=== PATIENT | female | born 2000 | race Hispanic/Latino ===

== ENCOUNTER 2020-07-16 20:03 | Emergency (ER) | payer SELFPAY ==
[2020-07-16 21:00] LABS: Urine Blood 2+ (NEG); Urine Glucose NEGATIVE (NEG); Urine Protein 1+ (NEG); Urine Specific Gravity >1.030 (1.005-1.030)
[2020-07-16 21:26] LABS: Absolute Lymphocytes (CBC) 2.4 K/uL (0.7-4.9); Basophils % 1.3 % (0-1.3); Hematocrit 39.9 % (36.0-45.0); Lymphocytes % 19.2 % (15.3-44.8); MPV 8.4 fL (7.6-11.3); RBC Red Blood Cell Count 5.01 M/uL (3.86-4.86)
[2020-07-16 21:45] LABS: ALT/SGPT 48 U/L (12-78); AST/SGOT 28 U/L (15-37); Albumin 3.6 g/dL (3.4-5.0); Alkaline Phosphatase 83 U/L (45-117); BUN Blood Urea Nitrogen 12 mg/dL (7-18); Bicarbonate 25 mmol/L (21-32); Bilirubin Direct < 0.1 mg/dL (0-0.2); Bilirubin Total 0.3 mg/dL (0.2-1.0); Glucose Level 95 mg/dL (74-106); Lipase 85 U/L (73-393); Potassium 3.6 mmol/L (3.5-5.1); Protein, Total 7.5 g/dL (6.4-8.2); Sodium Level 141 mmol/L (136-145)
--- NOTE | 2020-07-16 23:36 | EDPHYS ---
Physician Documentation [facility] Name: Yayo Morgan Age: 19 yrs Sex: Female : 2000 Arrival Date: 07/16/2020 Time: 20:09 Bed 6 Private MD: ED Physician Kyle Peralta HPI: 07/16 20:53 This 19 yrs old Female presents to ER via Ambulatory with complaints of jmm Vaginal Pain - pressure, Nausea. 20:53 Onset: The symptoms/episode began/occurred today. Modifying factors: The symptoms are jmm alleviated by nothing, the symptoms are aggravated by nothing. Associated signs and symptoms: Pertinent negatives: vaginal bleeding, vaginal discharge. This is a 19 year old female with a history of PCOS that presents to the ED with complaints of pelvic pain and fullness beginning today. Patient states most recent cycle was in February. Denies vaginal discharge. Denies dysuria. . 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 - Social history:: Smoking status: Patient reports the use of cigarette tobacco products, denies chronic smoking, but will smoke occasionally. ROS: 20:53 Constitutional: Negative for fever, chills, and weight loss, Cardiovascular: Negative jmm for chest pain, palpitations, and edema, Respiratory: Negative for shortness of breath, cough, wheezing, and pleuritic chest pain. 20:53 : Positive for pelvic pain. 20:53 All other systems are negative. Exam: 20:53 Constitutional: This is a well developed, well nourished patient who is awake, alert, jmm and in no acute distress. Head/Face: atraumatic. Eyes: EOMI, no conjunctival erythema appreciated ENT: Moist Mucus Membranes Neck: Trachea midline, Supple Chest/axilla: Normal chest wall appearance and motion. Cardiovascular: Regular rate and rhythm. No edema appreciated Respiratory: Normal respirations, no respiratory distress appreciated Abdomen/GI: Non distended, soft Back: Normal ROM Skin: General appearance color normal MS/ Extremity: Moves all extremities, no obvious deformities appreciated, no edema noted to the lower extremities Neuro: Awake and alert, normal gait Psych: Behavior is normal, Mood is normal, Patient is cooperative and pleasant Vital Signs: 20:19 BP 133 / 70; Pulse 91; Resp 16 S; Temp 97.8(TE); Pulse Ox 100% on R/A; Weight 119.29 kg ca1 (R); Height 5 ft. 3 in. (160.02 cm) (R); 22:50 BP 127 / 85; Pulse 80; Resp 18; Pulse Ox 99% on R/A; ea 23:19 BP 136 / 84; Pulse 88; Resp 16; Pulse Ox 98% on R/A; ea 20:19 Body Mass Index 46.59 (119.29 kg, 160.02 cm) ca1 MDM: 20:56 Patient medically screened. [facility] 23:33 Data reviewed: vital signs, nurses notes. Counseling: I had a detailed discussion with janey the patient and/or guardian regarding: the historical points, exam findings, and any diagnostic results supporting the discharge/admit diagnosis, lab results, the need for outpatient follow up, to return to the emergency department if symptoms worsen or persist or if there are any questions or concerns that arise at home. ED course: Patient is alert and non toxic in appearance in the ED. Patient states she was prescribed metformin and control but does not currently have a pcp. Patient is advised to follow up with business representative for further evaluation. Patient is otherwise given strict return precautions. Patient understood and agrees with the plan of care. . 07/16 20:53 Order name: Urine Dipstick--Ancillary (enter results); Complete Time: 21: 07/16 20:53 Order name: Urine --Ancillary (enter results); Complete Time: 21: 07/16 21:07 Order name: Basic Metabolic Panel; Complete Time: 22:05 07/16 21:07 Order name: CBC with Diff; Complete Time: 22:05 07/16 21:07 Order name: Hepatic Function; Complete Time: 22:05 07/16 21:07 Order name: Lipase; Complete Time: 22:05 07/16 20:53 Order name: Urine Dipstick-Ancillary (obtain specimen); Complete Time: 20:54 ca1 07/16 20:53 Order name: Urine Test (obtain specimen); Complete Time: 20:54 ca1 07/16 21:06 Order name: US Pelvis Complete m 07/16 21:07 Order name: IV Saline Lock; Complete Time: 21:12 ea 07/16 21:07 Order name: Labs collected and sent; Complete Time: 21:12 ea Administered Medications: No medications were administered Disposition: 07/17 05:48 Co-signature as Attending Physician, Kyle Peralta MD. 7 Disposition: 07/16/20 23:35 Discharged to Home. Impression: Other ovarian cysts. - Condition is Stable. - Discharge Instructions: Ovarian Cyst, Diet for Polycystic Ovarian Syndrome. - Medication Reconciliation Form, Thank You Letter, Antibiotic Education, Prescription Opioid Use form. - Follow up: Private Physician; When: 2 - 3 days; Reason: Recheck today's complaints, Continuance of care, Re-evaluation by your physician. Signatures: Dispatcher [employer] EDMS J Luis Palm PA PA jmm Antunez, Elena, RN RN ea Acob, Cheryl, RN RN ca1 Holmes, Maurice, MD MD 7 Corrections: (The following items were deleted from the chart) 07/16 23:54 23:35 07/16/2020 23:35 Discharged to Home. Impression: Other ovarian cysts. Condition ea is Stable. Forms are Medication Reconciliation Form, Thank You Letter, Antibiotic Education, Prescription Opioid Use. Follow up: Private Physician; When: 2 - 3 days; Reason: Recheck today's complaints, Continuance of care, Re-evaluation by your physician. [facility]
--- NOTE | 2020-07-16 23:36 | ER ---
Nurse's Notes [facility] Name: Yayo Morgan Age: 19 yrs Sex: Female : 2000 Arrival Date: 07/16/2020 Time: 20:09 Bed 6 Private MD: Diagnosis: Other ovarian cysts Presentation: 07/16 20:19 Chief complaint: Patient states: groin pain and pressure since this morning. Reports ca1 lower back pain and nausea. Denies vomiting, urinary symptoms. Hx of PCOS. Coronavirus screen: Client denies travel out of the [place] in the last 14 days. At this time, the client does not indicate any symptoms associated with coronavirus-19. Ebola Screen: Patient negative for fever greater than or equal to 101.5 degrees Fahrenheit, and additional compatible Ebola Virus Disease symptoms Patient denies exposure to infectious person. Patient denies travel to an Ebola-affected area in the 21 days before illness onset. No symptoms or risks identified at this time. Initial Sepsis Screen: Does the patient meet any 2 criteria? No. Patient's initial sepsis screen is negative. Does the patient have a suspected source of infection? No. Patient's initial sepsis screen is negative. Risk Assessment: Do you want to hurt yourself or someone else? Patient reports no desire to harm self or others. Onset of symptoms was July 16, 2020. 20:19 Method Of Arrival: Ambulatory ca1 20:19 Acuity: ANAHY 3 ca1 Triage Assessment: 20:27 General: Appears in no apparent distress. Behavior is appropriate for age. Pain: ea Complains of pain in pelvis Pain radiates to back. Neuro: Level of Consciousness is awake, alert, obeys commands, Oriented to person, place, time, situation. Cardiovascular: Patient's skin is warm and dry. GI: Abdomen is obese, Reports nausea. Derm: Skin is pink, warm \T\ dry. 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 - Social history:: Smoking status: Patient reports the use of cigarette tobacco products, denies chronic smoking, but will smoke occasionally. Screenin:26 Abuse screen: Denies threats or abuse. Nutritional screening: No deficits noted. ea Tuberculosis screening: No symptoms or risk factors identified. Fall Risk None identified. Assessment: 20:27 Reassessment: see triage assessment. ea 21:13 Reassessment: Patient and/or family updated on plan of care and expected duration. Pain ea level reassessed. Patient is alert, oriented x 3, equal unlabored respirations, skin warm/dry/pink. 22:09 Reassessment: Patient and/or family updated on plan of care and expected duration. Pain ea level reassessed. Patient is alert, oriented x 3, equal unlabored respirations, skin warm/dry/pink. 23:19 Reassessment: Patient and/or family updated on plan of care and expected duration. Pain ea level reassessed. Patient is alert, oriented x 3, equal unlabored respirations, skin warm/dry/pink. 23:52 Reassessment: Patient and/or family updated on plan of care and expected duration. Pain ea level reassessed. Patient is alert, oriented x 3, equal unlabored respirations, skin warm/dry/pink. Discharge instruction given to patient, verbalized the understanding of instruction. Pt left ED ambulatory tolerating well. Vital Signs: 20:19 BP 133 / 70; Pulse 91; Resp 16 S; Temp 97.8(TE); Pulse Ox 100% on R/A; Weight 119.29 kg ca1 (R); Height 5 ft. 3 in. (160.02 cm) (R); 22:50 BP 127 / 85; Pulse 80; Resp 18; Pulse Ox 99% on R/A; ea 23:19 BP 136 / 84; Pulse 88; Resp 16; Pulse Ox 98% on R/A; ea 20:19 Body Mass Index 46.59 (119.29 kg, 160.02 cm) ca1 ED Course: 20:09 Patient arrived in ED. am2 20:20 Clara Nava, AMADO is Primary Nurse. ea 20:22 Triage completed. ca1 20:25 J Luis Palm PA is PHCP. jm 20:25 Kyle Peralta MD is Attending Physician. jmm 20:25 Arm band placed on right wrist. ca1 20:26 Patient has correct armband on for positive identification. Placed in gown. Bed in low ea position. Call light in reach. Side rails up X 1. 21:12 Inserted saline lock: 20 gauge in left antecubital area, using aseptic technique. ea ,using aseptic technique. Per Alexsander FISCHER Blood collected. 22:21 US Pelvis Complete In Process Unspecified. EDMS 23:53 No provider procedures requiring assistance completed. IV discontinued, intact, ea bleeding controlled, No redness/swelling at site. Pressure dressing applied. Administered Medications: No medications were administered Outcome: 23:35 Discharge ordered by . janey 23:53 Discharged to home ambulatory. ea 23:53 Condition: stable 23:53 Discharge instructions given to patient, Instructed on discharge instructions, follow up and referral plans. Demonstrated understanding of instructions, follow-up care. 23:54 Patient left the ED. ea Signatures: Dispatcher [employer] EDMS J Luis Palm PA PA jmm Moreno, Amanda am2 Clara Nava RN RN ea Acob, Cheryl RN RN ca1
[2020-07-17 02:00] VITALS: TEMP 97.8
[2020-07-17 02:03] VITALS: BP 136/84; O2SAT 98
--- NOTE | 2020-07-17 08:15 | RAD REPORT ---
EXAM DESCRIPTION: US - Pelvis Complete - 07/16/2020 10:21 pm CLINICAL HISTORY: pelvic pain Pelvic pain. COMPARISON: No comparisons FINDINGS: The uterus is normal in size, shape and echotexture. The uterus measures 7.5 x 4.4 x 3.7 c m. The endometrial stripe measures 15 mm, normal. Both ovaries are normal in size, shape and echotexture. The right ovary measures 3.4 x 2.7 x 2.3 cm. The left ovary measures 3.6 x 3.3 x 2.1 cm. No ovarian or parovarian lesions. No adnexal masses. Normal Doppler blood flow was demonstrated to both ovaries. No significant pelvic ascites. IMPRESSION: No acute process is identified.
== END 2020-07-16 23:54 | disposition home or self-care (01) ==
LOC: ER 20:03
DX: N83.299 Other ovarian cyst, unspecified side (principal); F17.210 Nicotine dependence, cigarettes, uncomplicated
CPT/HCPCS: 36415; 76856; 80048; 80076; 81003; 81025; 83690; 85025; 99283

== ENCOUNTER 2020-08-06 18:05 | Emergency (ER) | payer SELFPAY ==
[2020-08-06] MEDS ORDERED: SMZ./TMP. 800/160 MG TABLET ONE (19:45)
[2020-08-06] MEDS ORDERED: CEPHALEXIN 250 MG CAP ONE (19:45)
[2020-08-06] MEDS ORDERED: LIDOCAINE 1% MPF 5 ML VIAL ONE (19:45)
[2020-08-06] MEDS ORDERED: HYDROCODONE/APAP 7.5/325 MG TAB ONE (19:46)
--- NOTE | 2020-08-06 20:20 | ER ---
Nurse's Notes [facility] Name: Yayo Morgan Age: 19 yrs Sex: Female : 2000 Arrival Date: 08/06/2020 Time: 18:09 Bed 20 Private MD: Diagnosis: Cutaneous abscess of groin-left labia majora Presentation: 08/06 18:17 Chief complaint: Patient states: Abscess to vaginal are for 2-3 days getting slowly ll1 worse. No drainage, no fever. Coronavirus screen: Client denies travel out of the [place] in the last 14 days. At this time, the client does not indicate any symptoms associated with coronavirus-19. Ebola Screen: Patient denies travel to an Ebola-affected area in the 21 days before illness onset. Initial Sepsis Screen: Does the patient meet any 2 criteria? No. Patient's initial sepsis screen is negative. Risk Assessment: Do you want to hurt yourself or someone else? Patient reports no desire to harm self or others. Onset of symptoms was August 04, 2020. 18:17 Method Of Arrival: Ambulatory ll1 18:17 Acuity: ANAHY 3 ll1 Historical: - Allergies: 18:19 No Known Allergies; ll1 - PMHx: 18:19 PCOS; ll1 - PSHx: 18:19 hip surgery; Tonsillectomy; ll1 - Immunization history:: Flu vaccine is not up to date. - Social history:: Smoking status: Patient denies any tobacco usage or history of. Screenin:06 Abuse screen: Denies threats or abuse. Nutritional screening: No deficits noted. jb4 Tuberculosis screening: No symptoms or risk factors identified. Fall Risk None identified. Assessment: 19:06 General: Appears in no apparent distress. uncomfortable, Behavior is calm, cooperative, jb4 appropriate for age. Pain: Complains of pain in pelvis Pain does not radiate. Pain currently is 4 out of 10 on a pain scale. Neuro: Level of Consciousness is awake, alert, obeys commands, Oriented to person, place, time, situation. Cardiovascular: Patient's skin is warm and dry. Respiratory: Airway is patent Respiratory effort is even, unlabored, Respiratory pattern is regular, symmetrical. GI: No signs and/or symptoms were reported involving the gastrointestinal system. : No signs and/or symptoms were reported regarding the genitourinary system. EENT: No signs and/or symptoms were reported regarding the EENT system. Derm: Skin is intact, Skin is pink, warm \T\ dry. Abscess located on groin. Musculoskeletal: Circulation, motion, and sensation intact. Range of motion: intact in all extremities. 20:14 Reassessment: Patient appears in no apparent distress at this time. Patient and/or jb4 family updated on plan of care and expected duration. Pain level reassessed. Patient is alert, oriented x 3, equal unlabored respirations, skin warm/dry/pink. Vital Signs: 18:17 BP 136 / 62; Pulse 98; Resp 18; Temp 98.3; Pulse Ox 99% ; Weight 119.29 kg; Height 5 ll1 ft. 4 in. (162.56 cm); Pain 4/10; 20:30 BP 122 / 78; Pulse 76; Resp 16; Pulse Ox 98% on R/A; jb4 18:17 Body Mass Index 45.14 (119.29 kg, 162.56 cm) ll1 ED Course: 18:09 Patient arrived in ED. mr 18:18 Triage completed. ll1 18:19 Arm band placed on. ll1 18:29 Verónica Peres [facility]NP-C [facility]. kb 18:29 Wallace Galloway MD is Attending Physician. kb 19:06 Patient has correct armband on for positive identification. Placed in gown. Bed in low jb4 position. Call light in reach. Side rails up X 1. Pulse ox on. NIBP on. 19:25 Laith Casper, AMADO is Primary Nurse. jb4 20:40 No provider procedures requiring assistance completed. Patient did not have IV access jb4 during this emergency room visit. Administered Medications: 19:39 Drug: Bonita (7.5 mg-325 mg) 1 tabs Route: PO; jb4 19:40 Drug: Bactrim (160 mg-800 mg (DS) 1 tablet Route: PO; jb4 19:40 Drug: KeFLEX 500 mg Route: PO; jb4 20:12 Drug: Lidocaine (1 %) 1 vials {Note: administered by ER provider..} Volume: 5 ml; jb4 Route: Infiltration; Outcome: 20:19 Discharge ordered by . kb 20:40 Discharged to home ambulatory, with family. jb4 20:40 Condition: stable 20:40 Discharge instructions given to patient, Instructed on discharge instructions, follow up and referral plans. medication usage, Demonstrated understanding of instructions, follow-up care, medications, Prescriptions given X 3. 20:40 Patient left the ED. tl1 Signatures: Verónica Peres, TEAM ASSEMBLY LINE MACHINE OPERATOR-C TEAM ASSEMBLY LINE MACHINE OPERATOR-Federico Mimi Lua mr ChaloTaylor, RN RN tl1 Laith Casper RN RN jb4 Mildred Valdez RN RN ll1 Corrections: (The following items were deleted from the chart) 19:39 19:39 Lidocaine (1 %) 1 vials 5 ml Infiltration 5 ml jb4 jb4 20:41 20:40 Discharge instructions given to patient, Instructed on discharge instructions, jb4 follow up and referral plans. Demonstrated understanding of instructions, follow-up care, medications, jb4
--- NOTE | 2020-08-06 20:20 | EDPHYS ---
Physician Documentation [facility] Name: Yayo Morgan Age: 19 yrs Sex: Female : 2000 Arrival Date: 08/06/2020 Time: 18:09 Bed 20 Private MD: ED Physician Wallace Galloway HPI: 08/06 19:57 This 19 yrs old Female presents to ER via Ambulatory with complaints of kb Abscess. 19:57 The patient presents with an abscess of the left labia majora. Description: kb erythematous, fluctuant, swollen. Onset: The symptoms/episode began/occurred 3 day(s) ago. Possible cause(s): unknown. Associated signs and symptoms: Pertinent positives: erythema, swelling, Pertinent negatives: discharge, drainage, foreign body sensation, fever, headache, nausea, shortness of breath, vomiting. Modifying factors: the symptoms are alleviated by nothing, the symptoms are aggravated by pressure, sitting, squeezing the lesion and expressing the contents, touching. Severity of symptoms: At their worst the symptoms were moderate, in the emergency department the symptoms are unchanged. The patient has not experienced similar symptoms in the past. The patient has not recently seen a physician. Historical: - Allergies: 18:19 No Known Allergies; ll1 - PMHx: 18:19 PCOS; ll1 - PSHx: 18:19 hip surgery; Tonsillectomy; ll1 - Immunization history:: Flu vaccine is not up to date. - Social history:: Smoking status: Patient denies any tobacco usage or history of. ROS: 19:55 Constitutional: Negative for fever, chills, and weight loss, Cardiovascular: Negative kb for chest pain, palpitations, and edema, Respiratory: Negative for shortness of breath, cough, wheezing, and pleuritic chest pain, Abdomen/GI: Negative for abdominal pain, nausea, vomiting, diarrhea, and constipation, MS/Extremity: Negative for injury and deformity, Neuro: Negative for headache, weakness, numbness, tingling, and seizure. 19:55 Skin: Positive for abscess, of the left labia majora. Exam: 19:55 Constitutional: This is a well developed, well nourished patient who is awake, alert, kb and in no acute distress. Head/Face: Normocephalic, atraumatic. Chest/axilla: Normal chest wall appearance and motion. Nontender with no deformity. No lesions are appreciated. Cardiovascular: Regular rate and rhythm with a normal S1 and S2. No gallops, murmurs, or rubs. Normal PMI, no JVD. No pulse deficits. Respiratory: Lungs have equal breath sounds bilaterally, clear to auscultation and percussion. No rales, rhonchi or wheezes noted. No increased work of breathing, no retractions or nasal flaring. Abdomen/GI: Soft, non-tender, with normal bowel sounds. No distension or tympany. No guarding or rebound. No evidence of tenderness throughout. MS/ Extremity: Pulses equal, no cyanosis. Neurovascular intact. Full, normal range of motion. Neuro: Awake and alert, GCS 15, oriented to person, place, time, and situation. Cranial nerves II-XII grossly intact. Motor strength 5/5 in all extremities. Sensory grossly intact. Cerebellar exam normal. Normal gait. 19:55 : Pelvic Exam: External exam: abscess left labia majora. Vital Signs: 18:17 BP 136 / 62; Pulse 98; Resp 18; Temp 98.3; Pulse Ox 99% ; Weight 119.29 kg; Height 5 ll1 ft. 4 in. (162.56 cm); Pain 4/10; 20:30 BP 122 / 78; Pulse 76; Resp 16; Pulse Ox 98% on R/A; jb4 18:17 Body Mass Index 45.14 (119.29 kg, 162.56 cm) ll1 Procedures: 20:18 I \T\ D: Incision and drainage was performed for an abscess of the left left labia majora kb Prepped with Betadine, Anesthetized with 1 ml's 1% Lidocaine. Incised with #11 blade. Drained small amount purulent fluid. the patient tolerated the procedure well. MDM: 19:06 Patient medically screened. kb 19:54 Data reviewed: vital signs, nurses notes. Data interpreted: Pulse oximetry: on room air kb is 99 %. Interpretation: normal. Counseling: I had a detailed discussion with the patient and/or guardian regarding: the historical points, exam findings, and any diagnostic results supporting the discharge/admit diagnosis, the need for outpatient follow up, an OB/Gyne specialist, to return to the emergency department if symptoms worsen or persist or if there are any questions or concerns that arise at home. 08/06 19:25 Order name: I\T\D Setup; Complete Time: 20:04 kb Administered Medications: 19:39 Drug: Bear (7.5 mg-325 mg) 1 tabs Route: PO; jb4 19:40 Drug: Bactrim (160 mg-800 mg (DS) 1 tablet Route: PO; jb4 19:40 Drug: KeFLEX 500 mg Route: PO; jb4 20:12 Drug: Lidocaine (1 %) 1 vials {Note: administered by ER provider..} Volume: 5 ml; jb4 Route: Infiltration; Disposition: 08/07 09:07 Co-signature as Attending Physician, Wallace Galloway MD I agree with the assessment and kdr plan of care. Disposition: 08/06/20 20:19 Discharged to Home. Impression: Cutaneous abscess of groin - left labia majora. - Condition is Stable. - Discharge Instructions: Skin Abscess, [id number], Incision and Drainage, Care After. - Prescriptions for Diclofenac Sodium 75 mg Oral Tablet, Delayed Release (E.C.) - take 1 tablet by ORAL route 2 times per day As needed; 30 tablet. Bactrim DS 800- 160 mg Oral Tablet - take 1 tablet by ORAL route every 12 hours for 10 days; 20 tablet. Keflex 500 mg Oral Capsule - take 1 capsule by ORAL route every 8 hours for 10 days; 30 capsule. - Medication Reconciliation Form, Thank You Letter, Antibiotic Education, Prescription Opioid Use, Work release form form. - Follow up: Emergency Department; When: As needed; Reason: Worsening of condition. Follow up: Private Physician; When: 2 - 3 days; Reason: Recheck today's complaints, Continuance of care, Re-evaluation by your physician. Signatures: Verónica Peres, VICE PRESIDENT OF DEVELOPMENT-C VICE PRESIDENT OF DEVELOPMENT-Ckb Wallace Galloway MD MD [facility] Taylor Isabel RN RN tl1 Laith Casper RN RN jb4 Mildred Valdez, AMADO RN ll1 Corrections: (The following items were deleted from the chart) 08/06 20:40 20:19 08/06/2020 20:19 Discharged to Home. Impression: Cutaneous abscess of groin - tl1 left labia majora. Condition is Stable. Forms are Medication Reconciliation Form, Thank You Letter, Antibiotic Education, Prescription Opioid Use. Follow up: Emergency Department; When: As needed; Reason: Worsening of condition. Follow up: Private Physician; When: 2 - 3 days; Reason: Recheck today's complaints, Continuance of care, Re-evaluation by your physician. kb
[2020-08-06 21:19] VITALS: TEMP 98.3
[2020-08-06 21:21] VITALS: BP 122/78; O2SAT 98
== END 2020-08-06 20:40 | disposition home or self-care (01) ==
LOC: ER 18:05
PROC: 0U9MXZZ Drainage of Vulva, External Approach (ICD-10-PCS; principal; 2020-08-06)
DX: L02.214 Cutaneous abscess of groin (principal)
CPT/HCPCS: 99283

== ENCOUNTER 2020-09-29 19:53 | Emergency (ER) | payer SELFPAY ==
--- OUTSIDE RECORDS SUMMARY | 2020-09-29 19:55 | XMS REPORT | Continuity of Care Document ---
:2000 Author Organization [facility] t Address [address] [place] [address] Care Team Providers Name Role Phone Unavailable Unavailable Unavailable Problems This patient has no known problems. Allergies, Adverse Reactions, Alerts This patient has no known allergies or adverse reactions. Medications This patient has no known medications. Procedures This patient has no known procedures. Encounters Start End Encounter Admission Attending Care Care Encounter Source Date/Time Date/Time Type Type Clinicians Facility Department ID 2020 2020 Emergency E [id number] 16:34:00 16:34:00 Results This patient has no known results.
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
[2020-09-29] MEDS ORDERED: HYDROCODONE/APAP 10/325 TAB ONE (22:06)
[2020-09-29] MEDS ORDERED: IBUPROFEN 400 MG TAB ONE (22:07)
[2020-09-30 05:04] VITALS: BP 124/86; TEMP 98.3; O2SAT 100
--- NOTE | 2020-09-30 07:40 | RAD REPORT ---
EXAM DESCRIPTION: RAD - Knee Right 3 View - 09/29/2020 9:47 pm CLINICAL HISTORY: Right knee pain status post injury FINDINGS: Mild cortical regularity involves the medial tibial plateau. Most likely this is not signi ficant as there does not appear to be joint effusion present. A fracture although possible is conside red less likely No dislocation If the patient continues have symptoms to suggest an occult fracture, ligamentous or meniscal injury then MRI would be recommended
== END 2020-09-29 22:05 | disposition home or self-care (01) ==
LOC: ER 19:53
DX: M23.8X1 Other internal derangements of right knee (principal); V89.2XXA Person injured in unspecified motor-vehicle accident, traffic, initial encounter
CPT/HCPCS: 99284

== ENCOUNTER 2021-01-28 18:01 | Emergency (ER) | payer SELFPAY ==
--- OUTSIDE RECORDS SUMMARY | 2021-01-28 18:04 | XMS REPORT | Continuity of Care Document ---
:2000 Author Organization [facility] t Address [address] [place] [address] Care Team Providers Name Role Phone Unavailable [...]
[2021-01-28 20:38] LABS: SARS-COV-2 RT PCR NEGATIVE (NEGATIVE)
--- NOTE | 2021-01-28 21:26 | ER ---
Nurse's Notes [facility] Name: Yayo Morgan Age: 20 yrs Sex: Female : 2000 Arrival Date: 01/28/2021 Time: 18:02 Bed 27 Private MD: Diagnosis: Acute upper respiratory infection, unspecified Presentation: 01/28 18:16 Chief complaint: Patient states: Sore throat, headache, cough and congestion x ca1 yesterday. Coronavirus screen: Client denies travel out of the [place] in the last 14 days. congestion, cough unrelated to allergies, headache, sore throat, Client presents with at least one sign or symptom that may indicate coronavirus-19. Standard/surgical mask placed on the client. Provider contacted for isolation considerations. Ebola Screen: Patient negative for fever greater than or equal to 101.5 degrees Fahrenheit, and additional compatible Ebola Virus Disease symptoms Patient denies exposure to infectious person. Patient denies travel to an Ebola-affected area in the 21 days before illness onset. No symptoms or risks identified at this time. Initial Sepsis Screen: Does the patient meet any 2 criteria? No. Patient's initial sepsis screen is negative. Does the patient have a suspected source of infection? No. Patient's initial sepsis screen is negative. Risk Assessment: Do you want to hurt yourself or someone else? Patient reports no desire to harm self or others. Onset of symptoms was January 28, 2021. 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 - Social history:: Smoking status: Patient/guardian denies using tobacco, the patient reports quitting approximately 1 years ago, Patient/guardian denies using alcohol, street drugs, The patient lives with family. - Family history:: not pertinent. Screenin:39 Abuse screen: Denies threats or abuse. Denies injuries from another. Nutritional zb screening: No deficits noted. Tuberculosis screening: No symptoms or risk factors identified. Fall Risk None identified. Assessment: 20:38 General: Appears uncomfortable, Behavior is calm, cooperative, appropriate for age, zb Reports feeling ill for 1-2 days, fatigue for 1-2 days. Pain: Complains of pain in neck. Neuro: Level of Consciousness is awake, alert, obeys commands, Oriented to person, place, time, situation. Cardiovascular: Patient's skin is warm and dry. Respiratory: Airway is patent Respiratory effort is even. GI: Abdomen is obese. EENT: Throat is reddened Cervical nodes enlarged bilaterally. Derm: Skin is intact, Skin is dry, Skin is normal. Musculoskeletal: Range of motion: intact in all extremities. 20:40 Respiratory: Breath sounds are clear bilaterally. zb Vital Signs: 18:16 BP 106 / 88; Pulse 99; Resp 19 S; Temp 98.2(TE); Pulse Ox 100% on R/A; Weight 119.29 kg ca1 (R); Height 5 ft. 4 in. (162.56 cm) (R); Pain 4/10; 20:44 BP 100 / 58; Pulse 82; Resp 18; Pulse Ox 100% on R/A; zb 18:16 Body Mass Index 45.14 (119.29 kg, 162.56 cm) ca1 ED Course: 18:02 Patient arrived in ED. am2 18:18 Triage completed. ca1 18:19 Arm band placed on right wrist. ca1 18:23 [facility]C [facility] kb 18:23 Wallace Galloway MD is Attending Physician. kb 19:12 Strep Sent. ca1 20:29 Nancy Matthews MD is Attending Physician. ma2 20:33 Letitia Downing, AMADO is Primary Nurse. zb 20:39 Patient has correct armband on for positive identification. Bed in low position. Call zb light in reach. Side rails up X 1. Pulse ox on. NIBP on. Door closed. Noise minimized. Warm blanket given. 21:52 No provider procedures requiring assistance completed. Patient did not have IV access iw during this emergency room visit. Administered Medications: No medications were administered Outcome: 21:26 Discharge ordered by . ma2 21:52 Discharged to home ambulatory. iw 21:52 Condition: good 21:52 Discharge instructions given to patient, Instructed on discharge instructions, follow up and referral plans. medication usage, Demonstrated understanding of instructions, follow-up care, medications, Prescriptions given X 1. 21:53 Patient left the ED. tt3 Signatures: Verónica Peres FNP-C FNP-Chelo Ledesma, RN RN iw Malia Keller am2 Nancy Matthews MD MD ma2 Oumou Izquierdo RN RN ca1 Trim, Tyler tt3 Letitia Downing RN RN zb Corrections: (The following items were deleted from the chart) 21:01 20:44 Pulse 82bpm; Resp 18bpm; Pulse Ox 100% RA; zb zb
--- NOTE | 2021-01-28 21:26 | EDPHYS ---
Physician Documentation [facility] Name: Yayo Morgan Age: 20 yrs Sex: Female : 2000 Arrival Date: 01/28/2021 Time: 18:02 Bed 27 Private MD: ED Physician Nancy Matthews HPI: 01/28 21:24 This 20 yrs old Female presents to ER via Ambulatory with complaints of Sore ma2 Throat, Headache, Cough, Chest Pressure. 21:24 The patient presents with sore throat. Onset: The symptoms/episode began/occurred ma2 gradually, 1 day(s) ago. Severity of symptoms: At their worst the symptoms were very mild, in the emergency department the symptoms are unchanged. Associated signs and symptoms: Pertinent negatives cough, dysphagia, fever, flu-like symptoms, headache, nausea. The patient has experienced similar episodes in the past. [employer]: 18:19 LMP N/A - Irregular menses ca1 Historical: - Allergies: 18:19 No Known Allergies; ca1 - Home Meds: 18:19 Metformin Oral [Active]; ca1 - PMHx: 18:19 PCOS; Diabetes - NIDDM; ca1 - PSHx: 18:19 Femur Surgery; ca1 - Immunization history:: Flu vaccine is not up to date. - Social history:: Smoking status: Patient/guardian denies using tobacco, the patient reports quitting approximately 1 years ago, Patient/guardian denies using alcohol, street drugs, The patient lives with family. - Family history:: not pertinent. ROS: 21:24 Constitutional: Negative for fever, chills, and weight loss. ma2 21:24 All other systems are negative. Exam: 21:24 Constitutional: This is a well developed, well nourished patient who is awake, alert, ma2 and in no acute distress. Head/Face: Normocephalic, atraumatic. Eyes: Pupils equal round and reactive to light, extra-ocular motions intact. Lids and lashes normal. Conjunctiva and sclera are non-icteric and not injected. Cornea within normal limits. Periorbital areas with no swelling, redness, or edema. ENT: red oropharynx, otherwise Nares patent. No nasal discharge, no septal abnormalities noted. Tympanic membranes are normal and external auditory canals are clear. Oropharynx with no redness, swelling, or masses, exudates, or evidence of obstruction, uvula midline. Mucous membranes moist. Neck: Trachea midline, no thyromegaly or masses palpated, and no cervical lymphadenopathy. Supple, full range of motion without nuchal rigidity, or vertebral point tenderness. No Meningismus. Chest/axilla: Normal chest wall appearance and motion. Nontender with no deformity. No lesions are appreciated. Cardiovascular: Regular rate and rhythm with a normal S1 and S2. No gallops, murmurs, or rubs. Normal PMI, no JVD. No pulse deficits. Respiratory: Lungs have equal breath sounds bilaterally, clear to auscultation and percussion. No rales, rhonchi or wheezes noted. No increased work of breathing, no retractions or nasal flaring. Abdomen/GI: Soft, non-tender, with normal bowel sounds. No distension or tympany. No guarding or rebound. No evidence of tenderness throughout. MS/ Extremity: Pulses equal, no cyanosis. Neurovascular intact. Full, normal range of motion. Neuro: Awake and alert, GCS 15, oriented to person, place, time, and situation. Cranial nerves II-XII grossly intact. Motor strength 5/5 in all extremities. Sensory grossly intact. Cerebellar exam normal. Normal gait. Vital Signs: 18:16 BP 106 / 88; Pulse 99; Resp 19 S; Temp 98.2(TE); Pulse Ox 100% on R/A; Weight 119.29 kg ca1 (R); Height 5 ft. 4 in. (162.56 cm) (R); Pain 4/10; 20:44 BP 100 / 58; Pulse 82; Resp 18; Pulse Ox 100% on R/A; zb 18:16 Body Mass Index 45.14 (119.29 kg, 162.56 cm) ca1 MDM: 20:53 Patient medically screened. ma2 21:24 Differential diagnosis: Allergic rhinitis, gastroesophageal reflux disease, influenza, ma2 laryngitis. Data reviewed: vital signs, nurses notes. Counseling: I had a detailed discussion with the patient and/or guardian regarding: the historical points, exam findings, and any diagnostic results supporting the discharge/admit diagnosis, the presence of at least one elevated blood pressure reading (>120/80) during this emergency department visit, the need for outpatient follow up. Response to treatment: the patient's symptoms have markedly improved after treatment. 01/28 18:21 Order name: Strep; Complete Time: 20:12 ca1 01/28 20:17 Order name: Throat Culture EDMS 01/28 20:38 Order name: COVID-19/FLU A+B; Complete Time: 20:54 EDMS Administered Medications: No medications were administered Disposition: 01/28/21 21:26 Discharged to Home. Impression: Acute upper respiratory infection, unspecified. - Condition is Stable. - Discharge Instructions: Upper Respiratory Infection, Adult. - Prescriptions for Diclofenac Sodium 75 mg Oral Tablet Sustained Release - take 1 tablet by ORAL route 2 times per day; 30 tablet. - Medication Reconciliation Form, Thank You Letter, Antibiotic Education, Prescription Opioid Use form. - Follow up: Private Physician; When: Tomorrow; Reason: Continuance of care. Signatures: Dispatcher [employer] EDVT Verónica Peres, FERNANDO-C BOTTOM FINISHER-Nancy Rutledge MD MD ma2 Oumou Izquierdo RN RN ca1 Esvin Ray tt3 Corrections: (The following items were deleted from the chart) 19:51 18:21 Influenza Screen (A \T\ B)+BA.LAB.BRZ ordered. EDVT EDMS 19:52 18:21 CORONAVIRUS+MR.LAB.BRZ ordered. EDVT EDMS 21:53 21:26 01/28/2021 21:26 Discharged to Home. Impression: Acute upper respiratory tt3 infection, unspecified. Condition is Stable. Prescriptions for Diclofenac Sodium 75 mg Oral Tablet Sustained Release - take 1 tablet by ORAL route 2 times per day; 30 tablet. and Forms are Medication Reconciliation Form, Thank You Letter, Antibiotic Education, Prescription Opioid Use. Follow up: Private Physician; When: Tomorrow; Reason: Continuance of care. ma2
[2021-01-28 23:53] VITALS: TEMP 98.2; O2SAT 100
[2021-01-28 23:54] VITALS: BP 100/58
== END 2021-01-28 21:53 | disposition home or self-care (01) ==
LOC: ER 18:01
DX: J06.9 Acute upper respiratory infection, unspecified (principal); Z20.822 Contact with and (suspected) exposure to COVID-19; E11.9 Type 2 diabetes mellitus without complications
CPT/HCPCS: 0240U; 87070; 87081; 99283

== ENCOUNTER 2021-03-20 13:31 | Emergency (ER) | payer SELFPAY ==
--- OUTSIDE RECORDS SUMMARY | 2021-03-20 13:33 | XMS REPORT | Continuity of Care Document ---
:2000 Author Organization [facility] t Address [address] [place] [address] Care Team Providers Name Role Phone Unavailable [...]
[2021-03-20 14:27] LABS: Urine Glucose 2+ (Negative)
[2021-03-20 14:28] LABS: Urine Blood 3+ (Negative); Urine Protein 1+ (Negative); Urine pH 6.5 (5.0-7.0)
[2021-03-20 15:02] LABS: Absolute Lymphocytes (CBC) 1.9 K/uL (0.7-4.9); Basophils % 0.7 % (0-1.3); Hematocrit 32.9 % (36.0-45.0); Lymphocytes % 15.7 % (15.3-44.8); MPV 8.1 fL (7.6-11.3); RBC Red Blood Cell Count 4.88 M/uL (3.86-4.86)
[2021-03-20 15:13] LABS: Urine Bacteria <20 /HPF (<20); Urine RBC >50 /HPF (NONE SEEN)
[2021-03-20 15:24] LABS: BUN Blood Urea Nitrogen 9 mg/dL (7-18); Bicarbonate 27 mmol/L (21-32); Glucose Level 294 mg/dL (74-106); Potassium 3.8 mmol/L (3.5-5.1); Sodium Level 138 mmol/L (136-145)
[2021-03-20 15:30] LABS: HCG, Quantitative < 1 mIU/mL (1-3)
[2021-03-20 15:47] LABS: Blood Morphology Comment NOTED (NOT SEEN); Hypochromasia 1+; Platelet Estimate ADEQ; Polychromasia SLIGHT; White Blood Cell Scan OK (OK)
--- NOTE | 2021-03-20 18:51 | EDPHYS ---
Physician Documentation [facility] Name: Yayo Morgan Age: 20 yrs Sex: Female : 2000 Arrival Date: 03/20/2021 Time: 13:34 Bed 15 Private MD: ED Physician Froylan Agrawal HPI: 03/20 14:30 This 20 yrs old Female presents to ER via Ambulatory with complaints of cp Vaginal Bleeding, + Preg <12wks. 14:30 The patient presents with vaginal bleeding that is with clots, a desire for a cp test. 14:30 Onset: The symptoms/episode began/occurred 1 week(s) ago. cp 14:30 Associated signs and symptoms: Pertinent positives: cramping, Pertinent negatives: cp fever. 14:30 Severity of symptoms: in the emergency department the symptoms are unchanged, despite cp home interventions. STARS SPECIALIST: 14:53 LMP 03/20/2021 jd3 Historical: - Allergies: 13:55 Bees; aa5 - Home Meds: 13:55 None [Active]; aa5 - PMHx: 13:55 PCOS; pre-diabetes; aa5 - PSHx: 13:55 Tonsillectomy; 2 screws in right hip; aa5 - Immunization history:: Client reports having NOT received the Covid vaccine. Flu vaccine is not up to date. - Social history:: Smoking status: Patient/guardian denies using tobacco. ROS: 14:35 Constitutional: Negative for body aches, chills, fever, poor PO intake. cp 14:35 : Positive for vaginal bleeding. cp 14:35 Eyes: Negative for injury, pain, redness, and discharge. cp 14:35 ENT: Negative for ear pain, sore throat, difficulty swallowing, difficulty handling cp secretions. 14:35 Cardiovascular: Negative for chest pain. 14:35 Respiratory: Negative for cough, shortness of breath, wheezing. 14:35 Abdomen/GI: Positive for abdominal cramps. 14:35 Back: Negative for pain at rest, pain with movement. 14:35 Neuro: Negative for altered mental status, headache, syncope, weakness. 14:35 All other systems are negative. Exam: 14:50 Constitutional: The patient appears in no acute distress, alert, awake, non-toxic, well cp developed, well nourished, obese. 14:50 Head/Face: Normocephalic, atraumatic. cp 14:50 Eyes: Periorbital structures: appear normal, Conjunctiva: normal, no exudate, no injection, Sclera: no appreciated abnormality, Lids and lashes: appear normal, bilaterally. 14:50 ENT: External ear(s): are unremarkable, Nose: is normal, Mouth: Lips: moist, Oral mucosa: moist, Posterior pharynx: Airway: no evidence of obstruction, patent. 14:50 Chest/axilla: Inspection: normal. 14:50 Cardiovascular: Rate: tachycardic, Rhythm: regular. 14:50 Respiratory: the patient does not display signs of respiratory distress, Respirations: normal, no use of accessory muscles, no retractions, labored breathing, is not present. 14:50 Abdomen/GI: Inspection: abdomen appears normal, Palpation: soft, in all quadrants, nontender, in all quadrants. 14:50 Back: pain, is absent, ROM is normal. Vital Signs: 13:45 BP 137 / 91; Pulse 107; Resp 20; Temp 98.5; Pulse Ox 100% on R/A; Weight 119.29 kg (R); aa5 Height 5 ft. 4 in. (162.56 cm) (R); Pain 3/10; 19:07 Pulse 100; Resp 18; Pulse Ox 98% on R/A; zb 13:45 Body Mass Index 45.14 (119.29 kg, 162.56 cm) aa5 MDM: 14:23 Patient medically screened. cp 15:00 Differential diagnosis: dysmenorrhea, ectopic , ovarian cyst, pelvic cp inflammatory disease, ruptured ectopic , uterine fibroids, urinary tract infection, vaginosis. 18:50 Data reviewed: vital signs, nurses notes, lab test result(s), radiologic studies, cp ultrasound. 18:50 Counseling: I had a detailed discussion with the patient and/or guardian regarding: the cp historical points, exam findings, and any diagnostic results supporting the discharge/admit diagnosis, lab results, radiology results, the need for outpatient follow up, a family practitioner, an OB/Gyne specialist, to return to the emergency department if symptoms worsen or persist or if there are any questions or concerns that arise at home. 03/20 14:27 Order name: Urine Dipstick-Ancillary; Complete Time: 14:29 EDMS 03/20 15:26 Interpretation: Normal except: UGLUC 2+; UBLD 3+; UPROT 1+. cp 03/20 14:28 Order name: Urine Microscopic Only; Complete Time: 15:25 cp 03/20 15:25 Interpretation: Normal except: URBC >50. cp 03/20 14:29 Order name: Urine --Ancillary (enter results); Complete Time: 15:50 em1 03/20 14:29 Order name: Quantitative Hcg; Complete Time: 15:50 cp 03/20 14:29 Order name: Abo/rh Typing; Complete Time: 15:50 cp 03/20 14:29 Order name: Basic Metabolic Panel; Complete Time: 15:50 cp 03/20 15:50 Interpretation: Abnormal: GLUC 294. cp 03/20 14:28 Order name: Urine Test (obtain specimen); Complete Time: 14:31 cp 03/20 14:29 Order name: CBC with Diff; Complete Time: 15:50 cp 03/20 15:25 Interpretation: Normal except: WBC 12.00; RBC 4.88; HGB 10.2; HCT 32.9; MCV 67.4; MCH cp 21.0; MCHC 31.1; PLT 442; RDW 16.9; ROGELIO% 76.0; NEUT A 9.1. 03/20 14:29 Order name: IV Saline Lock; Complete Time: 14:48 cp 03/20 14:29 Order name: Labs collected and sent; Complete Time: 14:48 cp 03/20 14:29 Order name: NPO; Complete Time: 14:31 cp 03/20 14:47 Order name: US Transvaginal Study (Probe) 03/20 15:05 Order name: CBC Smear Scan; Complete Time: 15:50 EDMS Administered Medications: No medications were administered Disposition: 03/21 06:55 Co-signature as Attending Physician, Froylan Agrawal MD I agree with the assessment and dali plan of care. Disposition: 03/20/21 18:51 Discharged to Home. Impression: Hyperglycemia, unspecified, Anemia in chronic diseases classified elsewhere, Other abnormal uterine and vaginal bleeding. - Condition is Stable. - Discharge Instructions: Abnormal Uterine Bleeding, Iron Deficiency Anemia, Adult, Anemia, Nonspecific, Hyperglycemia, Prediabetes Eating Plan. - Prescriptions for Ferrous Sulfate 325 mg (65 mg Iron) Oral Tablet - take 1 tablet by ORAL route every 12 hours; 60 tablet. - Medication Reconciliation Form, Thank You Letter, Antibiotic Education, Prescription Opioid Use form. - Follow up: Private Physician; When: 1 week; Reason: Worsening of condition. - Problem is new. - Symptoms have improved. Signatures: Dispatcher [employer] EDFroylan Patel MD MD cha Calderon, Audri RN RN aa5 Froylan Cruz PA PA cp Brown, Zipporah, RN RN zb Corrections: (The following items were deleted from the chart) 03/20 19:08 18:51 03/20/2021 18:51 Discharged to Home. Impression: Hyperglycemia, unspecified; zb Anemia in chronic diseases classified elsewhere; Other abnormal uterine and vaginal bleeding. Condition is Stable. Forms are Medication Reconciliation Form, Thank You Letter, Antibiotic Education, Prescription Opioid Use. Follow up: Private Physician; When: 1 week; Reason: Worsening of condition. Problem is new. Symptoms have improved. cp
--- NOTE | 2021-03-20 18:51 | ER ---
Nurse's Notes [facility] Name: Yayo Morgan Age: 20 yrs Sex: Female : 2000 Arrival Date: 03/20/2021 Time: 13:34 Bed 15 Private MD: Diagnosis: Hyperglycemia, unspecified;Anemia in chronic diseases classified elsewhere;Other abnormal uterine and vaginal bleeding Presentation: 03/20 13:45 Chief complaint: Patient states: "I was relaxing at the house and I felt like a big aa5 villela of flow and when I went to the restroom there was something pink in a blood clot, so I freaked out and called my [id number] who told her me to come to the ER to make sure I didn't have a miscarriage" Patient states that she has not had a positive test, and she isn't sure if she missed a period because her menstrual cycle is irregular, and she is not sure when her LMP was. States that the bleeding has been going on for approximately 30 minutes. Coronavirus screen: Client denies travel out of the [place] in the last 14 days. At this time, the client does not indicate any symptoms associated with coronavirus-19. Ebola Screen: Patient denies travel to an Ebola-affected area in the 21 days before illness onset. Initial Sepsis Screen: Does the patient meet any 2 criteria? HR > 90 bpm. No. Patient's initial sepsis screen is negative. Does the patient have a suspected source of infection? No. Patient's initial sepsis screen is negative. Risk Assessment: Do you want to hurt yourself or someone else? Patient reports no desire to harm self or others. Onset of symptoms was March 20, 2021. 13:45 Method Of Arrival: Ambulatory aa5 13:45 Acuity: ANAHY 3 aa5 Triage Assessment: 13:55 General: Appears in no apparent distress. uncomfortable, Behavior is cooperative, aa5 anxious. Pain: Complains of pain in suprapubic area, right inguinal area and left inguinal area Pain currently is 3 out of 10 on a pain scale. Quality of pain is described as crampy. Neuro: Level of Consciousness is awake, alert, obeys commands, Oriented to person, place, time, situation. Cardiovascular: Patient's skin is warm and dry. Respiratory: Airway is patent Respiratory effort is even, unlabored, Respiratory pattern is regular, symmetrical. : Reports vaginal bleeding that is bright red, with clots, heavy flow. Derm: Skin is pink, warm \\T\\ dry. normal. Musculoskeletal: Circulation, motion, and sensation intact. SAMPLE PASTER: 14:53 LMP 03/20/2021 jd3 Historical: - Allergies: 13:55 Bees; aa5 - Home Meds: 13:55 None [Active]; aa5 - PMHx: 13:55 PCOS; pre-diabetes; aa5 - PSHx: 13:55 Tonsillectomy; 2 screws in right hip; aa5 - Immunization history:: Client reports having NOT received the Covid vaccine. Flu vaccine is not up to date. - Social history:: Smoking status: Patient/guardian denies using tobacco. Screenin:52 Abuse screen: Denies threats or abuse. Nutritional screening: No deficits noted. jd3 Tuberculosis screening: No symptoms or risk factors identified. Fall Risk Ambulatory Aid- None/Bed Rest/Nurse Assist (0 pts). Gait- Normal/Bed Rest/Wheelchair (0 pts) Mental Status- Oriented to own ability (0 pts). Total Bright Fall Scale indicates No Risk (0-24 pts). Assessment: 14:49 General: Appears in no apparent distress. comfortable, Behavior is calm, cooperative, jd3 appropriate for age. Pain: Complains of pain in suprapubic area Quality of pain is described as aching. Neuro: Level of Consciousness is awake, alert, obeys commands, Oriented to person, place, time, situation. Cardiovascular: Denies chest pain, Capillary refill < 3 seconds Patient's skin is warm and dry. Respiratory: Airway is patent Respiratory effort is even, unlabored, Respiratory pattern is regular, symmetrical, Denies cough, shortness of breath. GI: Abdomen is round Abd is soft and non tender X 4 quads. Reports lower abdominal pain, nausea. : Reports vaginal bleeding that is with clots. EENT: No signs and/or symptoms were reported regarding the EENT system. Derm: Skin is intact, Skin is dry, Skin is normal, Skin temperature is warm. Musculoskeletal: Circulation, motion, and sensation intact. Range of motion: intact in all extremities. 15:27 Reassessment: Patient appears in no apparent distress at this time. No changes from jd3 previously documented assessment. Patient and/or family updated on plan of care and expected duration. Pain level reassessed. Patient is alert, oriented x 3, equal unlabored respirations, skin warm/dry/pink. 19:06 Reassessment: Patient appears in no apparent distress at this time. Patient and/or zb family updated on plan of care and expected duration. Pain level reassessed. Patient is alert, oriented x 3, equal unlabored respirations, skin warm/dry/pink. pt d/c gait even and steady. ambulated out. Vital Signs: 13:45 BP 137 / 91; Pulse 107; Resp 20; Temp 98.5; Pulse Ox 100% on R/A; Weight 119.29 kg (R); aa5 Height 5 ft. 4 in. (162.56 cm) (R); Pain 3/10; 19:07 Pulse 100; Resp 18; Pulse Ox 98% on R/A; zb 13:45 Body Mass Index 45.14 (119.29 kg, 162.56 cm) aa5 ED Course: 13:34 Patient arrived in ED. as 13:53 Triage completed. aa5 13:55 Arm band placed on Patient placed in waiting room, Patient notified of wait time. aa5 14:19 Froylan Cruz PA is PHCP. cp 14:19 Froylan Agrawal MD is Attending Physician. cp 14:30 Phil Valente, AMADO is Primary Nurse. jd3 14:48 Inserted saline lock: 20 gauge in left antecubital area, using aseptic technique. Blood jd3 collected. 14:52 Patient has correct armband on for positive identification. Bed in low position. Call jd3 light in reach. Side rails up X 1. Adult w/ patient. Pulse ox on. NIBP on. 18:28 US Transvaginal Study (Probe) In Process Unspecified. EDMS 19:07 No provider procedures requiring assistance completed. IV discontinued, intact, zb bleeding controlled, No redness/swelling at site. Pressure dressing applied. Administered Medications: No medications were administered Outcome: 18:51 Discharge ordered by MD. cp 19:07 Discharged to home ambulatory. zb 19:07 Condition: stable 19:07 Discharge instructions given to patient, Instructed on discharge instructions, follow up and referral plans. medication usage, Demonstrated understanding of instructions, follow-up care, medications, Prescriptions given X 1. 19:08 Patient left the ED. yun Signatures: Dispatcher [employer] EDDaisha Claros Audri, RN RN aa5 Froylan Cruz PA PA cp Davies, Jonathon, RN RN jd3 Letitia Downing RN RN zb
--- NOTE | 2021-03-20 19:19 | RAD REPORT ---
EXAM DESCRIPTION: US - Transvaginal Study Probe - 03/20/2021 6:28 pm CLINICAL HISTORY: Vaginal bleeding COMPARISON: 2019 FINDINGS: The uterus measures 7 x 4 x 5cm. A fibroid is not seen. The endometrial stripe measures 10 millimeters The ovaries are normal in size and echotexture. Each ovary contains many follicles. Flow is present w ithin each ovary Cervical nabothian cysts No significant free fluid is seen. IMPRESSION: Each ovary contains many follicles. This can be seen with polycystic ovarian syndrome
[2021-03-20 19:29] VITALS: BP 137/91; TEMP 98.5
[2021-03-20 19:40] VITALS: O2SAT 98
== END 2021-03-20 19:08 | disposition home or self-care (01) ==
LOC: ER 13:31
DX: D64.9 Anemia, unspecified (principal); R73.9 Hyperglycemia, unspecified; Z91.030 Bee allergy status
CPT/HCPCS: 36415; 76830; 80048; 81003; 81015; 81025; 84702; 85025; 86900; 86901; 99284

== ENCOUNTER 2021-05-27 00:46 | Emergency (ER) | payer SELFPAY ==
--- OUTSIDE RECORDS SUMMARY | 2021-05-27 00:50 | XMS REPORT | Continuity of Care Document ---
:2000 Author Organization [facility] t Address [address] [place] [address] Care Team Providers Name Role Phone Unavailable [...]
[2021-05-27] MEDS ORDERED: ONDANSETRON 4 MG (ODT) TAB ONE (02:57)
[2021-05-27 02:59] LABS: Urine Blood 1+ (Negative); Urine Glucose Negative (Negative); Urine Protein 2+ (Negative); Urine pH 8.5 (5.0-7.0)
[2021-05-27 03:47] LABS: ALT/SGPT 53 U/L (12-78); AST/SGOT 20 U/L (15-37); Albumin 3.5 g/dL (3.4-5.0); Alkaline Phosphatase 91 U/L (45-117); BUN Blood Urea Nitrogen 8 mg/dL (7-18); Bicarbonate 25 mmol/L (21-32); Bilirubin Direct < 0.1 mg/dL (0-0.2); Bilirubin Total 0.4 mg/dL (0.2-1.0); Glucose Level 97 mg/dL (74-106); Lipase 64 U/L (73-393); Potassium 3.6 mmol/L (3.5-5.1); Sodium Level 140 mmol/L (136-145)
[2021-05-27 04:10] LABS: Absolute Lymphocytes (CBC) 2.4 K/uL (0.7-4.9); Basophils % 0.7 % (0-1.3); Hematocrit 32.1 % (36.0-45.0); Lymphocytes % 18.1 % (15.3-44.8); MPV 7.8 fL (7.6-11.3); RBC Red Blood Cell Count 4.96 M/uL (3.86-4.86)
[2021-05-27 04:37] LABS: Urine Bacteria 20-50 /HPF (<20); Urine Mucus 1+ /HPF (NONE SEEN); Urine RBC <5 /HPF (NONE SEEN); Urine Urothelial Cells <5 /HPF (NONE SEEN)
[2021-05-27 04:57] LABS: Blood Morphology Comment NOTED (NOT SEEN); Platelet Estimate INCR; White Blood Cell Scan OK (OK)
--- NOTE | 2021-05-27 05:28 | EDPHYS ---
Physician Documentation [facility] Name: Yayo Morgan Age: 20 yrs Sex: Female : 2000 Arrival Date: 05/27/2021 Time: 00:50 Bed 23 Private MD: ED Physician Marcus Bartholomew HPI: 05/27 02:49 This 20 yrs old Female presents to ER via Ambulatory with complaints of nausea.rn 02:50 The patient presents to the emergency department with nausea. Onset: The rn symptoms/episode began/occurred 2 week(s) ago. Possible causes: unknown. The symptoms are aggravated by food , The symptoms are alleviated by nothing. Severity of symptoms: At their worst the symptoms were mild in the emergency department the symptoms are unchanged. The patient has not experienced similar symptoms in the past. The patient has not recently seen a physician. Reports 2 weeks of nausea. Denies fever, abdominal pain, diarrhea. Reports brief headache the other day but not daily headaches or head trauma. States sexually active, took test at home 1 week ago and had a faint line, has not retested. Reports able to keep fluids down but food makes her nauseous. CLINICAL AUDITOR: 01:19 LMP 05/07/2021 em Historical: - Allergies: 01:18 Bees; em - Home Meds: 01:18 None [Active]; em - PMHx: 01:18 Diabetes - NIDDM; PCOS; em - PSHx: 01:18 femur; Tonsillectomy; em - Immunization history:: Adult Immunizations up to date, Client reports having NOT received the Covid vaccine. - Social history:: Smoking status: Patient denies any tobacco usage or history of. Patient/guardian denies using alcohol, street drugs. - Family history:: not pertinent. - Hospitalizations: : No recent hospitalization is reported. ROS: 02:50 Constitutional: Negative for fever, chills, and weight loss, Eyes: Negative for injury, rn pain, redness, and discharge, ENT: Negative for injury, pain, and discharge, Neck: Negative for injury, pain, and swelling, Cardiovascular: Negative for chest pain, palpitations, and edema, Respiratory: Negative for shortness of breath, cough, wheezing, and pleuritic chest pain, Abdomen/GI: Negative for vomiting, diarrhea, and constipation, Back: Negative for injury and pain, MS/Extremity: Negative for injury and deformity, Skin: Negative for injury, rash, and discoloration, Neuro: Negative for weakness, numbness, tingling, and seizure. Exam: 02:50 Constitutional: This is a well developed, well nourished patient who is awake, alert, rn and in no acute distress. Head/Face: Normocephalic, atraumatic. Eyes: Pupils equal round and reactive to light, extra-ocular motions intact. Lids and lashes normal. Conjunctiva and sclera are non-icteric and not injected. Cornea within normal limits. Periorbital areas with no swelling, redness, or edema. Cardiovascular: Regular rate and rhythm . No pulse deficits. Respiratory: No increased work of breathing, no retractions or nasal flaring. Abdomen/GI: Soft, non-tender Skin: Warm, dry with normal turgor. Normal color with no rashes, no lesions, and no evidence of cellulitis. MS/ Extremity: Pulses equal, no cyanosis. Neurovascular intact. Full, normal range of motion. Equal circumference. Neuro: Awake and alert, GCS 15, oriented to person, place, time, and situation. Cranial nerves II-XII grossly intact. Motor strength 5/5 in all extremities. Sensory grossly intact. Cerebellar exam normal. Normal gait. Vital Signs: 01:19 BP 130 / 72; Pulse 90; Resp 16; Temp 98.4; Pulse Ox 100% ; Weight 119.29 kg; Height 5 em ft. 4 in. (162.56 cm); Pain 3/10; 01:19 Body Mass Index 45.14 (119.29 kg, 162.56 cm) em MDM: 02:22 Patient medically screened. rn 05:24 Differential diagnosis: Nonspecific abd pain, gastritis, cholecystitis, pancreatitis, rn gastroenteritis, Peptic ulcer disease, gastritis, stomach ulcer. Data reviewed: vital signs, nurses notes, lab test result(s), radiologic studies, CT scan, and as a result, I will discharge patient. Counseling: I had a detailed discussion with the patient and/or guardian regarding: the historical points, exam findings, and any diagnostic results supporting the discharge/admit diagnosis, lab results, radiology results, the need for outpatient follow up, to return to the emergency department if symptoms worsen or persist or if there are any questions or concerns that arise at home. Response to treatment: the patient's symptoms have mildly improved after treatment, and as a result, I will discharge patient. Special discussion: I discussed with the patient/guardian in detail that at this point there is no indication for admission to the hospital. It is understood, however, that if the symptoms persist or worsen the patient needs to return immediately for re-evaluation. Based on the history and exam findings, there is no indication for further emergent testing or inpatient evaluation. I discussed with the patient/guardian the need to see the md senior research scientist for further evaluation of the symptoms. ED course: Patient sleeping comfortably, feels better. CT head negative. CT abdomen shows possible gastric ulcer near the GE junction. Reevaluated patient, denies any hematemesis or bloody or black stool. Hemoglobin 10, last seen in March of this year and hemoglobin was 10.2. Patient states has heavy periods. Will start on antacid medication and discharge home with GI follow-up. Return precautions given and understood. 05/27 02:30 Order name: Urine Microscopic Only; Complete Time: 04:47 05/27 02:57 Order name: Urine Dipstick-Ancillary; Complete Time: 04:47 [facility] 05/27 03:00 Order name: Basic Metabolic Panel 05/27 03:00 Order name: CBC with Diff; Complete Time: 05:15 05/27 03:00 Order name: Hepatic Function; Complete Time: 04:47 05/27 03:00 Order name: Lipase; Complete Time: 04:47 05/27 03:00 Order name: CT Head Brain wo Cont 05/27 03:00 Order name: CT Abd/Pelvis - IV Contrast Only 05/27 03:01 Order name: Basic Metabolic Panel; Complete Time: 04:47 [facility] 05/27 03:01 Order name: Urine --Ancillary (enter results); Complete Time: 04:47 [facility] 05/27 04:25 Order name: CBC Smear Scan; Complete Time: 05:15 [facility] 05/27 04:38 Order name: Urine Culture [facility] 05/27 02:30 Order name: Urine Test (obtain specimen); Complete Time: 02:59 05/27 02:30 Order name: Urine Dipstick-Ancillary (obtain specimen); Complete Time: 02:59 05/27 03:00 Order name: IV Saline Lock; Complete Time: 03:27 rn 05/27 03:00 Order name: Labs collected and sent; Complete Time: 03:27 rn Administered Medications: 02:37 Drug: Ondansetron 4 mg Route: PO; em 02:59 Follow up: Response: No adverse reaction; Marked relief of symptoms; Nausea is decreasedem 05:49 Drug: ProTONIX (pantoprazole) 40 mg Route: IVP; Site: left antecubital; em 05:49 Follow up: Response: Medication administered at discharge. em 05:49 Drug: GI Cocktail without - (Maalox Suspension 30 ml, Lidocaine Liquid 2 % 15 em ml) Route: PO; 05:49 Follow up: Response: Medication administered at discharge. em Disposition Summary: 05/27/21 05:27 Discharge Ordered Location: Home rn Problem: an ongoing problem rn Symptoms: have improved rn Condition: Stable rn Diagnosis - Acute gastritis without bleeding rn - Acute peptic ulcer, site unspecified, without hemorrhage or perforation rn Followup: rn - With: Renny Griffin MD - When: 2 - 3 days - Reason: Recheck today's complaints, Re-evaluation by your physician Discharge Instructions: - Discharge Summary Sheet rn - Gastritis, Adult rn - Peptic Ulcer rn Forms: - Medication Reconciliation Form rn - Thank You Letter rn - Antibiotic media intern - Prescription Opioid Use rn Prescriptions: - Protonix 40 mg Oral Tablet - take 1 tablet by ORAL route once daily; 30 tablet; Refills: 0, Product rn Selection Permitted - ondansetron 4 mg Oral tablet,disintegrating - take 1 tablet by ORAL route every 8 hours As needed; 20 tablet; Refills: 0, rn Product Selection Permitted Signatures: Dispatcher [employer] Omar Kellogg RN RN em Marcus Bartholomew MD MD internal specialist: (The following items were deleted from the chart) 01:19 01:18 PMHx: Pre-Diabetes; em em
--- NOTE | 2021-05-27 05:28 | ER ---
Nurse's Notes [facility] Name: Yayo Morgan Age: 20 yrs Sex: Female : 2000 Arrival Date: 05/27/2021 Time: 00:50 Bed 23 Private MD: Diagnosis: Acute gastritis without bleeding;Acute peptic ulcer, site unspecified, without hemorrhage or perforation Presentation: 05/27 01:15 Chief complaint: Patient states: for 2 weeks I have not felt well. I feel lightheaded, em dizzy and nauseated. Coronavirus screen: Client denies travel out of the [place] in the last 14 days. Ebola Screen: Patient negative for fever greater than or equal to 101.5 degrees Fahrenheit, and additional compatible Ebola Virus Disease symptoms Patient denies exposure to infectious person. Patient denies travel to an Ebola-affected area in the 21 days before illness onset. No acute neurological deficit is noted. Initial Sepsis Screen: Does the patient meet any 2 criteria? No. Patient's initial sepsis screen is negative. Does the patient have a suspected source of infection? No. Patient's initial sepsis screen is negative. Risk Assessment: Do you want to hurt yourself or someone else? Patient reports no desire to harm self or others. Onset of symptoms was May 07, 2021. 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:19 LMP 05/07/2021 em Stroke Activation: Symptom onset > 6 hours Physician: Stroke Attending; Name: ; Notified At: ; Arrived At: Physician: Chief Stroke Resident; Name: ; Notified At: ; Arrived At: Physician: Stroke Resident; Name: ; Notified At: ; Arrived At: Physician: ED Attending; Name: ; Notified At: ; Arrived At: Physician: ED Resident; Name: ; Notified At: ; Arrived At: Historical: - Allergies: 01:18 Bees; em - Home Meds: 01:18 None [Active]; em - PMHx: 01:18 Diabetes - NIDDM; PCOS; em - PSHx: 01:18 femur; Tonsillectomy; em - Immunization history:: Adult Immunizations up to date, Client reports having NOT received the Covid vaccine. - Social history:: Smoking status: Patient denies any tobacco usage or history of. Patient/guardian denies using alcohol, street drugs. - Family history:: not pertinent. - Hospitalizations: : No recent hospitalization is reported. Screenin:43 Abuse screen: Denies threats or abuse. Nutritional screening: No deficits noted. em Tuberculosis screening: No symptoms or risk factors identified. Fall Risk None identified. Assessment: 02:34 General: Appears in no apparent distress. comfortable, Behavior is calm, cooperative, em appropriate for age. Pain: Denies pain. Neuro: Level of Consciousness is awake, alert, Oriented to person, place, time, situation. Cardiovascular: Capillary refill < 3 seconds Patient's skin is warm and dry. Respiratory: Airway is patent Respiratory effort is even, unlabored, Respiratory pattern is regular, symmetrical. GI: Abdomen is obese, Reports nausea. Derm: Skin is intact, is healthy with good turgor, Skin is pink, warm \T\ dry. Musculoskeletal: Capillary refill < 3 seconds, Range of motion: intact in all extremities. Vital Signs: 01:19 BP 130 / 72; Pulse 90; Resp 16; Temp 98.4; Pulse Ox 100% ; Weight 119.29 kg; Height 5 em ft. 4 in. (162.56 cm); Pain 3/10; 01:19 Body Mass Index 45.14 (119.29 kg, 162.56 cm) em ED Course: 00:50 Patient arrived in ED. cf2 01:18 Triage completed. em 01:20 Arm band placed on right wrist. em 01:32 Omar Elena, RN is Primary Nurse. em 02:22 Marcus Bartholomew MD is Attending Physician. rn 02:34 Omar Elena RN is Primary Nurse. em 02:43 Patient has correct armband on for positive identification. Call light in reach. em 03:15 Inserted saline lock: 22 gauge in left antecubital area, using aseptic technique. Blood ds4 collected. 04:25 CT Head Brain wo Cont In Process Unspecified. EDMS 04:25 CT Abd/Pelvis - IV Contrast Only In Process Unspecified. EDMS 05:26 Renny Griffin MD is Referral Physician. rn 05:50 No provider procedures requiring assistance completed. IV discontinued, intact, em bleeding controlled, No redness/swelling at site. Pressure dressing applied. Administered Medications: 02:37 Drug: Ondansetron 4 mg Route: PO; em 02:59 Follow up: Response: No adverse reaction; Marked relief of symptoms; Nausea is decreasedem 05:49 Drug: ProTONIX (pantoprazole) 40 mg Route: IVP; Site: left antecubital; em 05:49 Follow up: Response: Medication administered at discharge. em 05:49 Drug: GI Cocktail without - (Maalox Suspension 30 ml, Lidocaine Liquid 2 % 15 em ml) Route: PO; 05:49 Follow up: Response: Medication administered at discharge. em Outcome: 05:27 Discharge ordered by . rn 05:50 Discharged to home ambulatory. em 05:50 Condition: good 05:50 Discharge instructions given to patient, Instructed on discharge instructions, follow up and referral plans. medication usage, Demonstrated understanding of instructions, follow-up care, medications, Prescriptions given X 2. 05:50 Patient left the ED. em Signatures: Dispatcher [employer] Omar Kellogg RN RN em Marcus Bartholomew MD MD rn Swanson, Donovan ds4 Dago Griffin cf2 Corrections: (The following items were deleted from the chart) 01:19 01:18 PMHx: Pre-Diabetes; em em
[2021-05-27] MEDS ORDERED: MAGNES/ALUMIN/SIMET 30ML UCUP ONE ×2 (05:57→06:07)
[2021-05-27] MEDS ORDERED: PANTOPRAZOLE 40 MG INJ ONE (05:57)
[2021-05-27] MEDS ORDERED: LIDOCAINE VISCOUS 2% SOLN 15 ML UDC ONE (05:57)
[2021-05-27 06:11] VITALS: BP 130/72; TEMP 98.4; O2SAT 100
--- NOTE | 2021-05-27 12:03 | RAD REPORT ---
EXAM DESCRIPTION: CT - Abdomen Pelvis W Contrast - 05/27/2021 6:44 am COMPARISON: None. CLINICAL HISTORY: Headache and nausea TECHNIQUE: Axial images were obtained from skull base to vertex without intravenous contrast. Imag es viewed on bone and brain windows. Multiplanar reformats were performed. Automated exposure contr ol was utilized on this examination as a dose lowering technique. FINDINGS: Brain parenchyma, ventricles, dura, meninges, and extra-axial spaces: Ventricles and sulci are normal. No abnormal attenuation of brain parenchyma is present. No acute intracranial hemor rhage or abnormal extra-axial fluid collections are present. Vascular structures: No hyperdense arteries or veins. Calvarium, mastoid air cells, paranasal sinuses and orbits: The calvarium is normal. The mastoid air cells are clear. Visualized paranasal sinuses are unremarkable. Orbital structures are unremarkable. IMPRESSION: No acute intracranial abnormality. EXAM DESCRIPTION: CT Abdomen and Pelvis COMPARISON: CT abdomen pelvis December 07, 2018 report only CLINICAL HISTORY: NAUSEA / VOMITING TECHNIQUE: CT of the abdomen and pelvis was acquired with IV contrast material. Coronal and sagitt al reconstructions were obtained. Automated exposure control was utilized on this examination as a dose lowering technique. FINDINGS: Lung bases: Clear. Liver: Mildly enlarged measuring 17.3 cm midclavicular line. Gallbladder and biliary: Normal gallbladder. Unremarkable biliary tree. Pancreas: Normal. Spleen: Normal. Adrenal glands: Normal adrenal glands. Kidneys: Normal kidneys Stomach and Small Bowel: There is focal thinning of the gastric wall adjacent to the GE junction on s eries 702 image 68. Normal small bowel. Urinary bladder: Normal. Uterus and Adnexa: Normal. Colon and Appendix: The colon is unremarkable. No evidence of appendicitis. Retroperitoneum and lymph nodes: Normal. Vascular: Normal. Peritoneal cavity: No ascites or free air. Musculoskeletal and soft tissues: Soft tissues are unremarkable. Chronic right femur fracture fixatio n. No aggressive bone lesions. Lumbar spondylosis. No compression fracture. IMPRESSION: 1. Focal thinning of the gastric wall adjacent to the GE junction could represent an ulc er. No other acute intra-abdominal abnormality. 2. Mild hepatomegaly. Electronically signed by: José Yusuf MD 05/27/2021 4:56 AM CDT Due to temporary technical issues with the PACS/Fluency reporting system, reports are being signed by the in house radiologists without review as a courtesy to insure prompt reporting. The interpreting radiologist is fully responsible for the content of the report.
== END 2021-05-27 05:50 | disposition home or self-care (01) ==
LOC: ER 00:46
DX: K29.00 Acute gastritis without bleeding (principal); K27.3 Acute peptic ulcer, site unspecified, without hemorrhage or perforation; Z91.030 Bee allergy status
CPT/HCPCS: 36415; 70450; 74177; 80048; 80076; 81003; 81015; 81025; 83690; 85025; 87086; 87088; 96374; 99284; C9113; Q9967

== ENCOUNTER 2021-06-08 18:56 | Emergency (ER) | payer SELFPAY ==
--- OUTSIDE RECORDS SUMMARY | 2021-06-08 18:59 | XMS REPORT | Continuity of Care Document ---
:2000 Author Organization [facility] t Address [address] [place] [address] Care Team Providers Name Role Phone Unavailable [...]
[2021-06-08] MEDS ORDERED: ONDANSETRON 4 MG/2 ML VIAL ONE (19:48)
--- NOTE | 2021-06-08 20:19 | RAD REPORT ---
EXAM DESCRIPTION: Michael Single View06/08/2021 7:19 pm CLINICAL HISTORY: cough COMPARISON: none FINDINGS: The lungs appear clear of acute infiltrate. The heart is normal size IMPRESSION: No acute abnormalities displayed
[2021-06-08 20:22] LABS: Basophils % 0.5 % (0-1.3); Hematocrit 31.2 % (36.0-45.0); Lymphocytes % 6.6 % (15.3-44.8); MPV 7.7 fL (7.6-11.3); RBC Red Blood Cell Count 4.71 M/uL (3.86-4.86)
[2021-06-08 20:48] LABS: ALT/SGPT 51 U/L (12-78); AST/SGOT 32 U/L (15-37); Albumin 3.5 g/dL (3.4-5.0); Alkaline Phosphatase 76 U/L (45-117); BUN Blood Urea Nitrogen 8 mg/dL (7-18); Bicarbonate 20 mmol/L (21-32); Bilirubin Direct 0.1 mg/dL (0-0.2); Bilirubin Total 0.3 mg/dL (0.2-1.0); Glucose Level 105 mg/dL (74-106); Potassium 3.9 mmol/L (3.5-5.1); Protein, Total 7.3 g/dL (6.4-8.2); Sodium Level 145 mmol/L (136-145)
[2021-06-08 21:08] LABS: Urine Blood 3+ (Negative); Urine Glucose Negative (Negative); Urine Protein 2+ (Negative); Urine pH 5.5 (5.0-7.0)
[2021-06-08 21:35] LABS: Barbiturates NEGATIVE (NEGATIVE); Benzodiazepines NEGATIVE (NEGATIVE); Cocaine NEGATIVE (NEGATIVE); METHAMPHETAM NEGATIVE (NEGATIVE); Methadone NEGATIVE (NEGATIVE); Opiates NEGATIVE (NEGATIVE); Phencyclidine NEGATIVE (NEGATIVE); THC Cannibis NEGATIVE (NEGATIVE)
[2021-06-08 22:15] LABS: Blood Morphology Comment NOTED (NOT SEEN); Platelet Estimate ADEQ; Polychromasia SLIGHT
[2021-06-08 23:13] LABS: Protime INR 1.09
--- NOTE | 2021-06-09 03:57 | ER ---
Nurse's Notes [facility] Name: Yayo Morgan Age: 20 yrs Sex: Female : 2000 Arrival Date: 06/08/2021 Time: 19:00 Bed 7 Private MD: Diagnosis: Major Depression, Suicidal Ideation, Intentional Overdose Presentation: 06/08 19:00 Chief complaint: Patient states: patient states she took (3) handfuls of ibupofen 200 ms4 mg MEDICAL TRANSLATOR in an attempt to commit suicide. patient reports she has been under a lot of stress lately with losing her mother and fighting with her boyfriend. patient states she does not want to end her life at this time and wants help. patient tearful upon arrival. Coronavirus screen: Client denies travel out of the [place] in the last 14 days. At this time, the client does not indicate any symptoms associated with coronavirus-19. Ebola Screen: Patient negative for fever greater than or equal to 101.5 degrees Fahrenheit, and additional compatible Ebola Virus Disease symptoms Patient denies exposure to infectious person. Patient denies travel to an Ebola-affected area in the 21 days before illness onset. No symptoms or risks identified at this time. Initial Sepsis Screen: Does the patient meet any 2 criteria? No. Patient's initial sepsis screen is negative. Does the patient have a suspected source of infection? No. Patient's initial sepsis screen is negative. Risk Assessment: Do you want to hurt yourself or someone else? Patient reports no desire to harm self or others. Other: patient attempted to overdose MEDICAL TRANSLATOR but states she does not wish to harm herself at this time. patient called the ambulance to seek help. patient does not have plan or intent at this time. Note patient clothing and belongings stripped from room. patient placed on cardiac monitoring. patient placed in direct view of nurses station. patient denies suicidal plan or intent. patient calm and cooperative with this rn. Onset of symptoms was June 08, 2021. Care prior to arrival: None. Activity prior to arrival: vomiting. Mechanism of Injury: No Mechanism of Injury. Transition of care: patient was not received from another setting of care. 19:00 Method Of Arrival: EMS ms4 19:00 Acuity: ANAHY 2 ms4 Triage Assessment: 19:00 General: Appears distressed, obese, Behavior is cooperative, crying. Pain: Denies pain. ms4 EENT: No deficits noted. Neuro: No deficits noted. Cardiovascular: No deficits noted. Respiratory: No deficits noted. GI: Pt is actively vomiting bile, undigested food, Bowel sounds present X 4 quads. Abd is soft and non tender X 4 quads. Reports nausea. : No deficits noted. Derm: No deficits noted. Musculoskeletal: No deficits noted. 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 Last tetanus immunization: up to date Pneumococcal vaccine status is unknown, Flu vaccine status is unknown. Hepatitis A vaccine status is unknown. Hepatitis B vaccine status is unknown. Meningococcal vaccine status is unknown. Vaccine Information Sheet provided. - Social history:: Smoking status: Patient denies any tobacco usage or history of. Patient/guardian denies using alcohol, street drugs. - Family history:: not pertinent. - Code Status:: Full code. - Coronavirus screen:: The patient has NOT traveled to [place] in the past 14 days. The patient has NOT had contact with known/suspected case of Coronavirus?. - Ebola Screening: : Patient negative for fever greater than or equal to 101.5 degrees Fahrenheit, and additional compatible Ebola Virus Disease symptoms Patient denies exposure to infectious person Patient denies travel to an Ebola-affected area in the 21 days before illness onset No symptoms or risks identified at this time. Screenin:44 Abuse screen: Denies threats or abuse. Denies injuries from another. Nutritional ms4 screening: No deficits noted. Tuberculosis screening: No symptoms or risk factors identified. Fall Risk None identified. Assessment: 19:45 Reassessment: Poison control contacted, monitor for GI bleed, metabolic acidosis, RN PSYCHIATRIC ea depression, symptomatic supportive care, watch for at least 6 hours and treat with antiemetics as needed. #[id number]. 20:44 General: Appears in no apparent distress. comfortable, Behavior is calm, cooperative, ms4 quiet. Pain: Denies pain. Neuro: No deficits noted. Cardiovascular: No deficits noted. Respiratory: No deficits noted. GI: No deficits noted. No signs and/or symptoms were reported involving the gastrointestinal system. patient reports nausea is improved after zofran. patient able to tolerate ice chips. : No deficits noted. No signs and/or symptoms were reported regarding the genitourinary system. EENT: No deficits noted. No signs and/or symptoms were reported regarding the EENT system. Derm: No deficits noted. No signs and/or symptoms reported regarding the dermatologic system. Musculoskeletal: No deficits noted. No signs and/or symptoms reported regarding the musculoskeletal system. 20:45 Reassessment: Patient appears in no apparent distress at this time. No changes from ms4 previously documented assessment. Patient and/or family updated on plan of care and expected duration. Pain level reassessed. patient in direct view of nurses station, patient sleeping at this time. 23:21 Reassessment: Patient appears in no apparent distress at this time. No changes from ms4 previously documented assessment. Patient and/or family updated on plan of care and expected duration. Pain level reassessed. Labs drawn for 4 hour tylenol and salicylate level. 06/09 00:22 Reassessment: Patient appears in no apparent distress at this time. No changes from ms4 previously documented assessment. Patient and/or family updated on plan of care and expected duration. Pain level reassessed. patient medically cleared at this time per Dr Peralta. Patient to be discontinued from cardiac monitoring at this time. Patient awaiting [facility] psych service consult. 00:28 Reassessment: [facility] staff speaking to patient via telepsych. ms4 02:21 Reassessment: Patient appears in no apparent distress at this time. No changes from ms4 previously documented assessment. Patient and/or family updated on plan of care and expected duration. Pain level reassessed. Transfer paperwork for [facility] signed by patient. awaiting transport at this time. patient ambulated to restroom with this RN. 04:11 Reassessment: Patient appears in no apparent distress at this time. No changes from ms4 previously documented assessment. 04:11 Reassessment: Attempted to call report to [facility], unable to take report at this ms4 time. Staff to call back. 04:38 Reassessment: Report given to [facility] staff. patient to be transport to room ms4 742. Vital Signs: 06/08 19:00 BP 119 / 56; Pulse 108; Resp 18; Temp 98.7; Pulse Ox 100% ; Weight 119.75 kg; Height 5 ms4 ft. 4 in. (162.56 cm); Pain 0/10; 19:45 BP 129 / 54; Pulse 97; Resp 18; Temp 97.2; Pulse Ox 98% ; Pain 0/10; ms4 20:00 BP 128 / 52; Pulse 93; Resp 18; Temp 97.8; Pulse Ox 100% ; ms4 20:15 BP 117 / 65; Pulse 97; Resp 20; Pulse Ox 100% ; Pain 0/10; ms4 21:00 BP 121 / 63; Pulse 88; Resp 18; Temp 98.4; Pulse Ox 100% ; Pain 0/10; ms4 22:00 BP 134 / 79; Pulse 90; Resp 18; Temp 98.5; Pulse Ox 100% ; Pain 0/10; ms4 23:00 BP 137 / 73; Pulse 92; Resp 18; Temp 98; Pulse Ox 100% ; Pain 0/10; ms4 08/04 00:21 BP 123 / 74; Pulse 94; Resp 18; Temp 98.6; Pulse Ox 100% ; Pain 0/10; ms4 04:44 BP 141 / 85; Pulse 75; Resp 18; Temp 97.5; Pulse Ox 98% ; Pain 0/10; ms4 08 19:00 Body Mass Index 45.32 (119.75 kg, 162.56 cm) ms4 ED Course: 06/08 19:00 Patient arrived in ED. la1 19:00 Arm band placed on right wrist. Patient placed in an exam room, in view of staff ms4 members, on threat monitoring analyst, on pulse oximetry, Emesis basin given. 19:03 Kyle Peralta MD is Attending Physician. mh7 19:19 Chest Single View XRAY In Process Unspecified. EDMS 20:16 Muriel Valentin, AMADO is Primary Nurse. ms4 20:36 Triage completed. ms4 21:10 Urine Drug Screen Sent. ms4 22:26 Acetaminophen Sent. ms4 23:22 Maintain EMS IV. Dressing intact. Good blood return noted. Site clean \T\ dry. Gauge \T\ ms 4 site: 18 g L AC. 23:23 Salicylate Sent. ms4 23:23 Tylenol Level Sent. ms4 06/09 00:30 IV discontinued, intact, bleeding controlled, No redness/swelling at site. ms4 01:15 Faxed pt chart and clinicals to [facility], [facility], [facility], [facility], [facility], [facility], [facility], [facility] and [facility]. 01:18 Initiated transfer at [facility] with Lawrence Perrin. Requested for the [facility] exclusionary packet to be filled out, signed, and faxed to [phone] along with pt demographics, covid results and other lab results. Information passed on to Omar Elena RN, Charge Nurse and Clara Nava RN. 03:48 Lawrence called back with their physician Dr. Hernández for Doc to Doc consult regarding tt3 the transfer request. 03:56 Lawrence called back with admin approval. The accepting physician is Dr. Hernández. The pt tt3 is going to [facility]. Bed assignment pending. Nurse to call report to [phone]. 04:08 Patient has correct armband on for positive identification. Placed in gown. Bed in low ms4 position. Call light in reach. Side rails up X2. suicide precautions. 05:12 No provider procedures requiring assistance completed. ms4 Administered Medications: 06/08 19:55 Drug: Zofran (Ondansetron) 2 mg Route: IVP; Site: left antecubital; ea 23:01 Not Given (Ordered in errorr): Acetaminophen-Codeine (300 mg-30 mg) 1 tablet PO once; jb4 RASS on ADMIN: Combtv4, Very Agttd3, Agttd2, Rstlss1, AlertClm0, Drwsy-1, Lt Sdtn-2, Mod Sdtn-3, Dp Sdtn-4, UnArsble-5 Outcome: 06/09 03:56 ER care complete, transfer ordered by MD. kaur 05:12 Transferred by ground EMS to [facility], Transfer form completed. ms4 05:12 Condition: stable 05:12 Discharge instructions given to patient, Instructed on follow up and referral plans. the need for transfer, Demonstrated understanding of instructions, follow-up care. 05:14 Patient left the ED. ms4 Signatures: Dispatcher [employer] EDPaxton Garibay, ASSISTANT MERCHANDISE MANAGER-C ASSISTANT MERCHANDISE MANAGER-Cla1 Clara Nava, RN Kyle Dexter ea, MD MD 7 Esvin Ray tt3 Muriel Valentin RN RN ms4 Laith Casper RN jb4 Corrections: (The following items were deleted from the chart) 04:04 01:18 Initiated transfer at [facility] with Lawrence. Requested for the [facility] tt3 exclusionary packet to be filled out, signed, and faxed to along with pt demographics, covid results and other lab results. Information passed on to Omar Elean RN, Charge Nurse and Clara Nava RN. tt3
--- NOTE | 2021-06-09 03:57 | EDPHYS ---
Physician Documentation [facility] Name: Yayo Morgan Age: 20 yrs Sex: Female : 2000 Arrival Date: 06/08/2021 Time: 19:00 Bed 7 Private MD: ED Physician Kyle Peralta HPI: 06/08 19:10 This 20 yrs old Female presents to ER via Unassigned with complaints of mh7 Overdose. 19:10 The patient presents to the emergency department after a known overdose, that was mh7 intentional. Context: Method: the patient has a confirmed or suspected ingestion, Ibuprofen, Time: today, at 12:00, Extent: moderate ingestion, "Handful", the OD/poisoning occurred at at home, and was witnessed no one, Psychiatric history: the patient has a known psychiatric disorder, depression, Previous OD/poisoning history: none. 19:10 Associated signs and symptoms: Pertinent positives: depression, nausea, vomiting, mh7 Pertinent negatives: anxiety, apnea, auditory hallucinations, burning of skin, decreased level of consciousness, diaphoresis, diarrhea, dizziness, incontinence, loss of consciousness, palpitations, shortness of breath, tearfulness, visual hallucinations. Severity of symptoms: At their worst the symptoms were moderate today, in the emergency department the symptoms have improved moderately. Patient states that she took a handful of ibuprofen tablets today around noon with the intention to harm herself. She states later that she started having nausea vomiting. She admits to depression. She called EMS to bring her to the hospital.. 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 Last tetanus immunization: up to date Pneumococcal vaccine status is unknown, Flu vaccine status is unknown. Hepatitis A vaccine status is unknown. Hepatitis B vaccine status is unknown. Meningococcal vaccine status is unknown. Vaccine Information Sheet provided. - Social history:: Smoking status: Patient denies any tobacco usage or history of. Patient/guardian denies using alcohol, street drugs. - Family history:: not pertinent. - Code Status:: Full code. - Coronavirus screen:: The patient has NOT traveled to [place] in the past 14 days. The patient has NOT had contact with known/suspected case of Coronavirus?. - Ebola Screening: : Patient negative for fever greater than or equal to 101.5 degrees Fahrenheit, and additional compatible Ebola Virus Disease symptoms Patient denies exposure to infectious person Patient denies travel to an Ebola-affected area in the 21 days before illness onset No symptoms or risks identified at this time. ROS: 19:10 Constitutional: Negative for fever, chills, and weight loss, Eyes: Negative for injury, mh7 pain, redness, and discharge, ENT: Negative for injury, pain, and discharge, Neck: Negative for injury, pain, and swelling, Cardiovascular: Negative for chest pain, palpitations, and edema, Respiratory: Negative for shortness of breath, cough, wheezing, and pleuritic chest pain. 19:10 Back: Negative for injury and pain, : Negative for injury, bleeding, discharge, and swelling, MS/Extremity: Negative for injury and deformity, Skin: Negative for injury, rash, and discoloration, Neuro: Negative for headache, weakness, numbness, tingling, and seizure, Psych: Negative for depression, anxiety, suicide ideation, homicidal ideation, and hallucinations, Allergy/Immunology: Negative for hives, rash, and allergies, Endocrine: Negative for neck swelling, polydipsia, polyuria, polyphagia, and marked weight changes, Hematologic/Lymphatic: Negative for swollen nodes, abnormal bleeding, and unusual bruising. 19:10 Abdomen/GI: Negative for abdominal pain, diarrhea, constipation, abdominal cramps, abdominal distension, anorexia, dysphagia, hematemesis, black/tarry stool, rectal pain, rectal bleeding, bowel incontinence, flatulence. Exam: 19:10 Constitutional: This is a well developed, well nourished patient who is awake, alert, mh7 and in no acute distress. Head/Face: Normocephalic, atraumatic. Eyes: Pupils equal round and reactive to light, extra-ocular motions intact. Lids and lashes normal. Conjunctiva and sclera are non-icteric and not injected. Cornea within normal limits. Periorbital areas with no swelling, redness, or edema. Neck: Trachea midline, no thyromegaly or masses palpated, and no cervical lymphadenopathy. Supple, full range of motion without nuchal rigidity, or vertebral point tenderness. No Meningismus. Chest/axilla: Normal chest wall appearance and motion. Nontender with no deformity. No lesions are appreciated. Cardiovascular: Regular rate and rhythm with a normal S1 and S2. No gallops, murmurs, or rubs. Normal PMI, no JVD. No pulse deficits. Respiratory: Lungs have equal breath sounds bilaterally, clear to auscultation and percussion. No rales, rhonchi or wheezes noted. No increased work of breathing, no retractions or nasal flaring. Abdomen/GI: Soft, non-tender, with normal bowel sounds. No distension or tympany. No guarding or rebound. No evidence of tenderness throughout. Back: No spinal tenderness. No costovertebral tenderness. Full range of motion. Skin: Warm, dry with normal turgor. Normal color with no rashes, no lesions, and no evidence of cellulitis. MS/ Extremity: Pulses equal, no cyanosis. Neurovascular intact. Full, normal range of motion. Neuro: Awake and alert, GCS 15, oriented to person, place, time, and situation. Cranial nerves II-XII grossly intact. Motor strength 5/5 in all extremities. Sensory grossly intact. Cerebellar exam normal. Normal gait. 19:10 Psych: Behavior/mood is cooperative, depressed, Affect is calm, Oriented to person, place, time, Patient having thoughts of suicide. Plan for suicide is Overdose on pills Judgement / Insight is impaired. Memory is normal. Delusions/hallucinations are not present. Vital Signs: 19:00 BP 119 / 56; Pulse 108; Resp 18; Temp 98.7; Pulse Ox 100% ; Weight 119.75 kg; Height 5 ms4 ft. 4 in. (162.56 cm); Pain 0/10; 19:45 BP 129 / 54; Pulse 97; Resp 18; Temp 97.2; Pulse Ox 98% ; Pain 0/10; ms4 20:00 BP 128 / 52; Pulse 93; Resp 18; Temp 97.8; Pulse Ox 100% ; ms4 20:15 BP 117 / 65; Pulse 97; Resp 20; Pulse Ox 100% ; Pain 0/10; ms4 21:00 BP 121 / 63; Pulse 88; Resp 18; Temp 98.4; Pulse Ox 100% ; Pain 0/10; ms4 22:00 BP 134 / 79; Pulse 90; Resp 18; Temp 98.5; Pulse Ox 100% ; Pain 0/10; ms4 23:00 BP 137 / 73; Pulse 92; Resp 18; Temp 98; Pulse Ox 100% ; Pain 0/10; ms4 08/ 00:21 BP 123 / 74; Pulse 94; Resp 18; Temp 98.6; Pulse Ox 100% ; Pain 0/10; ms4 04:44 BP 141 / 85; Pulse 75; Resp 18; Temp 97.5; Pulse Ox 98% ; Pain 0/10; ms4 06/08 19:00 Body Mass Index 45.32 (119.75 kg, 162.56 cm) ms4 MDM: 03:53 Differential diagnosis: Ingestion/exposure to Ibuprofen polypharmacy, over medication, mh7 hypoglycemia. Data reviewed: vital signs, nurses notes, lab test result(s), amylase and lipase, CBC, electrolytes, urinalysis, urine drug screen, UPT: negative EKG. Data interpreted: Pulse oximetry: on room air is 100 %. Interpretation: normal. Counseling: I had a detailed discussion with the patient and/or guardian regarding: the historical points, exam findings, and any diagnostic results supporting the discharge/admit diagnosis, lab results, radiology results, the need to transfer to another facility, [facility] does not immediately have the required specialist. Response to treatment: the patient's symptoms have markedly improved after treatment. 03:56 [facility] 19:01 Order name: Acetaminophen [facility] 06/08 19:01 Order name: Basic Metabolic Panel; Complete Time: 20:59 ar06/08 19:01 Order name: CBC with Diff; Complete Time: 03:49 la06/08 19:01 Order name: ETOH Level; Complete Time: 20:59 ar06/08 19:01 Order name: Hepatic Function; Complete Time: 20:59 ar06/08 19:01 Order name: PT-INR; Complete Time: 03:49 la06/08 19:01 Order name: Ptt, Activated; Complete Time: 03:49 la1 06/08 19:01 Order name: Salicylate; Complete Time: 20:59 ar1 06/08 19:01 Order name: Urine Drug Screen; Complete Time: 21:37 la1 06/08 19:01 Order name: Acetaminophen Level; Complete Time: 20:59 EDMS 06/08 20:35 Order name: Manual Differential; Complete Time: 03:49 EDMS 06/08 21:08 Order name: Urine Dipstick-Ancillary; Complete Time: 21:37 EDMS 06/08 21:08 Order name: Urine --Ancillary (enter results); Complete Time: 03:49 tt3 06/08 19:01 Order name: EKG; Complete Time: 19:02 la1 06/08 19:01 Order name: EKG - Nurse/Tech; Complete Time: 21:14 la1 06/08 19:01 Order name: IV Saline Lock; Complete Time: 19:55 la1 06/08 19:01 Order name: Labs collected and sent; Complete Time: 19:55 la1 06/08 19:01 Order name: Suicide Precautions; Complete Time: 22:26 la1 06/08 19:01 Order name: Suicide Screening ([place]); Complete Time: 22:26 la1 06/08 19:01 Order name: Urine Dipstick-Ancillary (obtain specimen); Complete Time: 21:09 la1 06/08 19:01 Order name: Urine Test (obtain specimen); Complete Time: 21:09 la1 06/08 19:01 Order name: Chest Single View XRAY; Complete Time: 20:21 la1 06/08 19:01 Order name: Misc. Order: call poison control; Complete Time: 19:48 la1 06/08 21:17 Order name: SARS-COV-2 RT PCR; Complete Time: 21:37 EDMS 06/08 22:33 Order name: Tylenol Level; Complete Time: 03:49 ms4 06/08 22:33 Order name: Salicylate; Complete Time: 03:49 ms4 Administered Medications: 06/08 19:55 Drug: Zofran (Ondansetron) 2 mg Route: IVP; Site: left antecubital; ea 23:01 Not Given (Ordered in errorr): Acetaminophen-Codeine (300 mg-30 mg) 1 tablet PO once; jb4 RASS on ADMIN: Combtv4, Very Agttd3, Agttd2, Rstlss1, AlertClm0, Drwsy-1, Lt Sdtn-2, Mod Sdtn-3, Dp Sdtn-4, UnArsble-5 Disposition Summary: 06/09/21 03:56 Transfer Ordered [facility] Reason: Higher level of care mh7 Condition: Stable mh7 Problem: new mh7 Symptoms: have improved mh7 Accepting Physician: Dr. Hernández(06/09/21 05:14) ms4 Diagnosis - Major Depression, Suicidal Ideation, Intentional Overdose mh7 Discharge Instructions: - Discharge Summary Sheet tt3 Forms: - Medication Reconciliation Form tt3 - SBAR form tt3 Signatures: Dispatcher [employer] EDCT Paxton Olivera, SQUARE SHEAR OPERATOR-C SQUARE SHEAR OPERATOR-Cla1 Clara Nava RN RN Kyle Montes MD MD mh7 Muriel Valentin RN RN ms4 Laith Casper RN jb4 Corrections: (The following items were deleted from the chart) 20:15 19:06 CORONAVIRUS+MRBEAR.BRZ ordered. [facility] 06/09 05:14 03:56 Dr. Hernández 7 ms4
[2021-06-09 05:34] VITALS: BP 141/85; TEMP 97.5; O2SAT 98
--- NOTE | 2021-06-09 07:41 | EKG ---
Test Date: 2021-06-08 Test Time: 20:11:01 Butcher Assistant: DIONISIO MEASUREMENT RESULTS: Intervals: Rate: 91 MO: 154 QRSD: 100 QT: 340 QTc: 418 [place]: P: 57 MO: 154 QRS: 56 T: 26 INTERPRETIVE STATEMENTS: Normal sinus rhythm Normal ECG No previous ECG available for comparison Electronically Signed On 06-09-21 07:39:48 CDT by Michele Saravia
== END 2021-06-09 05:14 | disposition short-term general hospital (02) ==
LOC: ER 18:56
DX: T39.312A Poisoning by propionic acid derivatives, intentional self-harm, initial encounter (principal); F32.9 Major depressive disorder, single episode, unspecified; E11.9 Type 2 diabetes mellitus without complications; Z91.030 Bee allergy status; Z20.822 Contact with and (suspected) exposure to COVID-19
CPT/HCPCS: 36415; 71045; 80048; 80076; 80307; 80320; 80329; 81003; 81025; 85025; 85610; 85730; 93005; 96374; 99285; J2405; U0003

== ENCOUNTER 2021-12-28 23:30 | Emergency (ER) | payer SELFPAY ==
[2021-12-29 00:14] LABS: Urine Blood Negative (Negative); Urine Glucose Negative (Negative); Urine Protein 2+ (Negative); Urine Specific Gravity >=1.030 (1.005-1.030); Urine pH 5.5 (5.0-7.0)
[2021-12-29 00:33] LABS: Absolute Lymphocytes (CBC) 0.8 K/uL (0.7-4.9); Hematocrit 27.9 % (36.0-45.0); Lymphocytes % 14.6 % (15.3-44.8); MPV 8.6 fL (7.6-11.3); RBC Red Blood Cell Count 4.68 M/uL (3.86-4.86)
[2021-12-29 00:39] LABS: Urine Specific Gravity/Preg >1.030 (1.005-1.030)
[2021-12-29 00:47] LABS: Urine Mucus 3+ /HPF (NONE SEEN)
[2021-12-29 00:48] LABS: Urine Bacteria <20 /HPF (<20); Urine RBC <5 /HPF (NONE SEEN)
[2021-12-29 00:52] LABS: Albumin 3.8 g/dL (3.4-5.0); Bilirubin Direct 0.1 mg/dL (0-0.2); Bilirubin Total 0.4 mg/dL (0.2-1.0); Potassium 3.2 mmol/L (3.5-5.1); Protein, Total 8.4 g/dL (6.4-8.2)
[2021-12-29 01:02] LABS: Blood Morphology Comment NOTED (NOT SEEN); Hypochromasia 3+; Platelet Estimate ADEQ
--- NOTE | 2021-12-29 02:10 | EDPHYS ---
Physician Documentation [facility] Name: Yayo Morgan Age: 21 yrs Sex: Female : 2000 Arrival Date: 12/28/2021 Time: 23:33 Bed 13 Private MD: ED Physician Kyle Peralta HPI: 12/29 00:00 This 21 yrs old Female presents to ER via Ambulatory with complaints of cp Vaginal Discharge, Vaginal Pain, Vomiting. 00:00 The patient presents with vaginal discharge, that is clear discharge. Onset: The cp symptoms/episode began/occurred today. Associated signs and symptoms: Pertinent positives: vomiting, fatigue, Pertinent negatives: constipation, diarrhea, dysuria, nausea, vaginal bleeding, active vomiting. THREAD TWISTER: 12/28 23:41 LMP N/A - Irregular menses al4 Historical: - Allergies: 23:41 Bees; al4 - PMHx: 23:41 Diabetes - NIDDM; PCOS; al4 - PSHx: 23:41 femur; Tonsillectomy; al4 - Immunization history:: Adult Immunizations up to date. - Social history:: Smoking status: Patient denies any tobacco usage or history of. ROS: 12/29 00:05 Constitutional: Positive for fatigue, Negative for body aches, chills, fever, poor PO cp intake. 00:05 ENT: Negative for ear pain, sore throat, difficulty swallowing, difficulty handling cp secretions. 00:05 Cardiovascular: Negative for chest pain, palpitations. 00:05 Respiratory: Negative for cough, shortness of breath, wheezing. 00:05 Abdomen/GI: Positive for 1 episode of vomiting, Negative for abdominal pain, nausea, diarrhea, constipation. 00:05 Back: Negative for pain at rest, pain with movement. 00:05 : Positive for vaginal discharge, Negative for urinary symptoms, vaginal bleeding. 00:05 Neuro: Negative for altered mental status, headache, syncope, weakness. 00:05 All other systems are negative. Exam: 00:15 Constitutional: The patient appears in no acute distress, alert, awake, comfortable, cp non-diaphoretic, non-toxic, well developed, well nourished, obese. 00:15 Head/Face: Normocephalic, atraumatic. cp 00:15 Eyes: Periorbital structures: appear normal, Conjunctiva: normal, no exudate, no injection, Sclera: no appreciated abnormality, Lids and lashes: appear normal, bilaterally. 00:15 ENT: External ear(s): are unremarkable, Nose: is normal, Mouth: Lips: moist, Oral mucosa: moist, Posterior pharynx: Airway: no evidence of obstruction, patent, swelling, is not appreciated, erythema, is not appreciated. 00:15 Neck: ROM/movement: is normal, is supple, without pain, no range of motions limitations. 00:15 Chest/axilla: Inspection: normal. 00:15 Cardiovascular: Rate: normal, Rhythm: regular, Edema: is not appreciated, JVD: is not appreciated. 00:15 Respiratory: the patient does not display signs of respiratory distress, Respirations: normal, no use of accessory muscles, no retractions, labored breathing, is not present, Breath sounds: are clear throughout, no decreased breath sounds. 00:15 Abdomen/GI: Inspection: abdomen appears normal, Palpation: abdomen is soft and non-tender, in all quadrants. 00:15 Back: pain, is absent, ROM is normal. 00:15 Neuro: Orientation: to person, place \T\ time. Mentation: is normal, Motor: moves all fours, strength is normal, Sensation: is normal. 00:20 : Pelvic Exam: The exam is refused by the patient/guardian. The risks and cp consequences are understood by the patient. Vital Signs: 12/28 23:41 BP 123 / 99; Pulse 109; Resp 18; Temp 99; Pulse Ox 100% ; Weight 117.93 kg; Height 5 al4 ft. 4 in. (162.56 cm); Pain 3/10; 23:45 BP 118 / 85 LA Supine (auto/reg); Pulse 95 MON; Resp 18 S; Pulse Ox 100% on R/A; Pain tk1 01/13; 12/29 01:00 BP 120 / 79 LA Supine (auto/lg); Pulse 82 MON; Resp 18; Temp 98(O); Pulse Ox 100% ; tk1 02:00 BP 125 / 82 LA Supine (auto/lg); Pulse 75 MON; Resp 18; Pulse Ox 100% ; Pain 2/10; tk1 12/28 23:41 Body Mass Index 44.63 (117.93 kg, 162.56 cm) al4 MDM: 12/28 23:53 Patient medically screened. 12/29 00:00 Differential diagnosis: pelvic inflammatory disease, urinary tract infection, cp vaginosis, anemia, . 02:08 Data reviewed: vital signs, nurses notes, lab test result(s), and as a result, I will cp discharge patient. 02:08 Counseling: I had a detailed discussion with the patient and/or guardian regarding: the cp historical points, exam findings, and any diagnostic results supporting the discharge/admit diagnosis, lab results, the need for outpatient follow up, a family practitioner, to return to the emergency department if symptoms worsen or persist or if there are any questions or concerns that arise at home. 12/29 00:03 Order name: Basic Metabolic Panel; Complete Time: : cp 12/29 01:19 Interpretation: Normal except: NA 134; K 3.2; GFR 83. cp 12/29 00:03 Order name: CBC with Diff; Complete Time: :19 cp 12/29 01:19 Interpretation: Normal except: HGB 8.4; HCT 27.9; MCV 59.6; MCH 18.0; MCHC 30.2; PLT cp 416; RDW 18.5; LYM% 14.6; MN% 16.0. 12/29 00:03 Order name: Hepatic Function; Complete Time: : cp 12/29 01:20 Interpretation: Normal except: AST 13; TP 8.4; GLOB 4.6; A/G 0.8. cp 12/29 00:03 Order name: Lipase; Complete Time: :19 cp 12/29 00:03 Order name: Urine Microscopic Only; Complete Time: :19 cp 12/29 01:19 Interpretation: Normal except: SQEPI 5-10; MUCUS 3+. cp 12/29 00:13 Order name: Urine Dipstick-Ancillary; Complete Time: 01:19 EDMS 12/29 00:03 Order name: IV Saline Lock; Complete Time: 00:39 cp 12/29 00:03 Order name: Labs collected and sent; Complete Time: 00:40 cp 12/29 00:03 Order name: Urine Dipstick-Ancillary (obtain specimen); Complete Time: 00:39 cp 12/29 00:03 Order name: Urine Test (obtain specimen); Complete Time: 00:39 cp 12/29 00:15 Order name: Urine --Ancillary (enter results) mw2 12/29 00:15 Order name: Urine --Ancillary; Complete Time: 01:19 EDMS 12/29 00:38 Order name: Manual Differential; Complete Time: 01: EDMS Administered Medications: 02:21 Drug: Potassium Effervescent Tablet 50 mEq Route: PO; tk1 02:21 Follow up: Response: Medication administered at discharge. tk1 Disposition Summary: 12/29/21 02:09 Discharge Ordered Location: Home cp Problem: an ongoing problem cp Symptoms: are unchanged cp Condition: Stable cp Diagnosis - Anemia in other chronic diseases classified elsewhere cp - Hypokalemia cp Followup: cp - With: Private Physician - When: 2 - 3 days - Reason: Recheck today's complaints Discharge Instructions: - Discharge Summary Sheet cp - Anemia cp - Potassium Content of Foods cp - Hypokalemia cp Forms: - Medication Reconciliation Form cp - Thank You Letter cp - Antibiotic Education cp - Prescription Opioid Use cp Prescriptions: - Ferrous Sulfate 325 mg (65 mg Iron) Oral Tablet - take 1 tablet by ORAL route every 12 hours; 60 tablet; Refills: 0, Product cp Selection Permitted - Potassium Chloride 10 mEq Oral capsule, extended release - take 1 tablet by ORAL route every 12 hours for 5 days; 10 tablet; Refills: 0, cp Product Selection Permitted Addendum: 12/31/2021 22:43 Co-signature as Attending Physician, Kyle Peralta MD. m h7 Signatures: Dispatcher [employer] EDFroylan Jefferson PA PA cp Holmes, Maurice, MD MD 7 Billy Rendon Tammie tk1
--- NOTE | 2021-12-29 02:10 | ER ---
Nurse's Notes [facility] Name: Yayo Morgan Age: 21 yrs Sex: Female : 2000 Arrival Date: 12/28/2021 Time: 23:33 Bed 13 Private MD: Diagnosis: Anemia in other chronic diseases classified elsewhere;Hypokalemia Presentation: 12/28 23:36 Chief complaint: Patient states: pt woke up today wet with clear liquid in underwear al4 that was not urine. patient states today she had vomit x 1, dizziness, diaphoresis. patient states pain in ovaries. last obgyn check up was > 2 years ago. Coronavirus screen: Vaccine status: Patient reports being unvaccinated. Ebola Screen: No symptoms or risks identified at this time. Initial Sepsis Screen: Does the patient meet any 2 criteria? No. Patient's initial sepsis screen is negative. Does the patient have a suspected source of infection? No. Patient's initial sepsis screen is negative. Risk Assessment: Do you want to hurt yourself or someone else? Patient reports no desire to harm self or others. Onset of symptoms was December 28, 2021. 23:36 Method Of Arrival: Ambulatory al4 23:36 Acuity: ANAHY 3 al4 Triage Assessment: 23:41 General: Appears in no apparent distress. comfortable, Behavior is calm, cooperative. al4 Pain: Complains of pain in abdomen and pelvis Pain currently is 3 out of 10 on a pain scale. Neuro: Level of Consciousness is awake, alert, obeys commands, Oriented to person, place, time, situation. Cardiovascular: Capillary refill < 3 seconds Patient's skin is warm and dry. Respiratory: Airway is patent Respiratory effort is even, unlabored, Respiratory pattern is regular, symmetrical. GI: Reports nausea, vomiting. : Reports discharge, watery, urinary frequency, Denies burning with urination, cramping. Musculoskeletal: Range of motion: intact in all extremities. 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 - Social history:: Smoking status: Patient denies any tobacco usage or history of. Screenin:45 Abuse screen: Denies threats or abuse. Denies injuries from another. Nutritional tk1 screening: No deficits noted. Tuberculosis screening: No symptoms or risk factors identified. Fall Risk None identified. Assessment: 23:45 General: Appears comfortable, obese, well groomed, well developed, well nourished, tk1 Behavior is cooperative, flat, quiet. Pain: Complains of pain in right lower quadrant and left lower quadrant Pain does not radiate. Pain currently is 4 out of 10 on a pain scale. Quality of pain is described as crampy, Pain began 3 weeks Is intermittent. Neuro: No deficits noted. 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 Gait is steady, Speech is normal, Facial symmetry appears normal, Pupils are PERRLA. Cardiovascular: No deficits noted. Capillary refill < 3 seconds is brisk in bilateral fingers. Respiratory: Airway is patent Trachea midline Respiratory effort is even, unlabored, Respiratory pattern is regular, symmetrical. GI: Abdomen is round non-distended, obese, Last BM was December 28, 2021. Bowel sounds present X 4 quads. Abd is soft and non tender X 4 quads. : Reports discharge, from vagina that is watery. EENT: No deficits noted. No signs and/or symptoms were reported regarding the EENT system. Derm: No deficits noted. No signs and/or symptoms reported regarding the dermatologic system. Musculoskeletal: No deficits noted. No signs and/or symptoms reported regarding the musculoskeletal system. 12/29 00:30 Reassessment: No changes from previously documented assessment. Patient and/or family tk1 updated on plan of care and expected duration. Pain level reassessed. Patient is alert, oriented x 3, equal unlabored respirations, skin warm/dry/pink. Patient denies pain at this time. 01:30 Reassessment: No changes from previously documented assessment. Patient and/or family tk1 updated on plan of care and expected duration. Pain level reassessed. Patient is alert, oriented x 3, equal unlabored respirations, skin warm/dry/pink. Patient denies pain at this time. 02:38 Reassessment: D/C per MD order. Discharge/Prescription instructions given to patient. tk1 Verbalized understanding. Vital Signs: 12/28 23:41 BP 123 / 99; Pulse 109; Resp 18; Temp 99; Pulse Ox 100% ; Weight 117.93 kg; Height 5 al4 ft. 4 in. (162.56 cm); Pain 3; 23:45 BP 118 / 85 LA Supine (auto/reg); Pulse 95 MON; Resp 18 S; Pulse Ox 100% on R/A; Pain tk1 01/13; 12/29 01:00 BP 120 / 79 LA Supine (auto/lg); Pulse 82 MON; Resp 18; Temp 98(O); Pulse Ox 100% ; tk1 02:00 BP 125 / 82 LA Supine (auto/lg); Pulse 75 MON; Resp 18; Pulse Ox 100% ; Pain 2/10; tk1 12/28 23:41 Body Mass Index 44.63 (117.93 kg, 162.56 cm) al4 ED Course: 12/28 23:33 Patient arrived in ED. kc5 23:41 Triage completed. al4 23:41 Arm band placed on left wrist. al4 23:45 Froylan Cruz PA is PHCP. cp 23:45 Kyle Peralta MD is Attending Physician. cp 23:45 Patient has correct armband on for positive identification. Placed in gown. Bed in low tk1 position. Call light in reach. Pulse ox on. NIBP on. 23:45 Inserted saline lock: 20 gauge in right antecubital area, using aseptic technique. tk1 Blood collected. 23:46 Kelly Noonan is Primary Nurse. tk1 12/29 00:39 Urine --Ancillary (enter results) Sent. tk1 00:39 Urine Microscopic Only Sent. tk1 00:40 Basic Metabolic Panel Sent. tk1 00:40 CBC with Diff Sent. tk1 00:40 Hepatic Function Sent. tk1 00:40 Lipase Sent. tk1 00:40 Manual Differential Sent. tk1 02:38 No provider procedures requiring assistance completed. IV discontinued, intact, tk1 bleeding controlled, No redness/swelling at site. Pressure dressing applied. Administered Medications: 02: Drug: Potassium Effervescent Tablet 50 mEq Route: PO; tk1 02:21 Follow up: Response: Medication administered at discharge. tk1 Outcome: 02:09 Discharge ordered by . cp 02:38 Discharged to home ambulatory. tk1 02:38 Condition: stable 02:38 Discharge instructions given to patient, Instructed on discharge instructions, follow up and referral plans. medication usage, Demonstrated understanding of instructions, follow-up care, medications, Prescriptions given X 3. 02:40 Patient left the ED. tk1 Signatures: Froylan Cruz PA PA cp Clark, Kasey kc5 Billy Rendon Tammie tk1 Corrections: (The following items were deleted from the chart) 00:26 00:00 Inserted saline lock: 20 gauge in right antecubital area, using aseptic tk1 technique. Blood collected. tk1 02:35 00:30 Reassessment: No changes from previously documented assessment. Patient and/or tk1 family updated on plan of care and expected duration. Pain level reassessed. Patient is alert, oriented x 3, equal unlabored respirations, skin warm/dry/pink. Patient denies pain at this time. tk1
[2021-12-29] MEDS ORDERED: POTASSIUM 25 MEQ EFFERV TAB ONE (02:28)
[2021-12-29 04:51] VITALS: O2SAT 100
[2021-12-29 04:55] VITALS: TEMP 98
[2021-12-29 04:56] VITALS: BP 125/82
== END 2021-12-29 02:40 | disposition home or self-care (01) ==
LOC: ER 23:30
DX: E87.6 Hypokalemia (principal); D63.8 Anemia in other chronic diseases classified elsewhere; E11.9 Type 2 diabetes mellitus without complications; Z91.030 Bee allergy status
CPT/HCPCS: 36415; 80048; 80076; 81003; 81015; 81025; 83690; 85025; 99284

== ENCOUNTER 2024-11-21 15:57 | Emergency (ER) | payer OTHER, SELFPAY ==
--- NOTE | 2024-11-21 17:37 | ER ---
Nurse's Notes [facility] Name: Yayo Morgan Age: 24 yrs Sex: Female : 2000 Arrival Date: 11/21/2024 Time: 15:57 Bed IW1 Private MD: Diagnosis: Vaginal bleeding, near syncope, workup incomplete Presentation: 11/21 16:18 Chief complaint: Patient states: Weak, syncope episode, nausea started today. States ll1 she has had vaginal bleeding for the past 4-5 months. Coronavirus screen: Client denies travel out of the [place] in the last 14 days. At this time, the client does not indicate any symptoms associated with coronavirus-19. Ebola Screen: Patient denies travel to an Ebola-affected area in the 21 days before illness onset. Initial Sepsis Screen: Does the patient meet any 2 criteria? No. Patient's initial sepsis screen is negative. Does the patient have a suspected source of infection? No. Patient's initial sepsis screen is negative. Risk Assessment: Do you want to hurt yourself or someone else? Patient reports no desire to harm self or others. Onset of symptoms was May 06, 2025. 16:18 Method Of Arrival: Ambulatory ll1 16:18 Acuity: ANAHY 2 ll1 Triage Assessment: 16:18 General: Appears distressed, uncomfortable, Behavior is calm, cooperative, appropriate ll1 for age. Pain: Complains of pain in head Quality of pain is described as aching. Neuro: Reports dizziness, headache a syncopal episode weakness. : Reports vaginal bleeding that is moderate flow, since 4-5 months. Historical: - Allergies: 16:05 Bees; ll1 16:18 Wasps; ll1 - PMHx: 16:05 Diabetes - NIDDM; PCOS; ll1 - PSHx: 16:05 Tonsillectomy; femur; ll1 - Immunization history:: Adult Immunizations up to date. - Social history:: Smoking status: Patient denies any tobacco usage or history of. Assessment: 17:20 Reassessment: called pt to exam room. No answer. Unable to locate patient. ss 17:20 Reassessment: Called pt to exam room. No answer. Unable to locate patient. ss 17:33 Reassessment: Called pt to exam room. No answer. Unable to locate patient. Dr. Foster notified. Vital Signs: 16:18 BP 127 / 66; Pulse 94; Resp 18; Temp 98; Pulse Ox 100% ; Weight 117.93 kg; Height 5 ft. ll1 4 in. ; Pain 6/10; 16:18 Body Mass Index 44.63 (117.93 kg, 162.56 cm) ll1 16:18 Pain Scale: Adult ll1 ED Course: 16:00 Patient arrived in ED. al6 16:05 Arm band placed on. ll1 16:06 Cynthia Foster MD is Attending Physician. sp3 16:20 Triage completed. ll1 17:33 No provider procedures requiring assistance completed. Patient did not have IV access ss during this emergency room visit. Administered Medications: 17:42 Not Given (pt left prior to care complete): ns 0.9% 1000 ml IV at 1 bolus Per protocol; ss to be given as a bolus over 60 minutes Outcome: 17:42 Eloped from waiting room, ss 17:42 unknown 17:43 Patient left the ED. ss Signatures: Poornima San, RN RN Mildred Valdez RN RN [facility] Cynthia Foster MD MD sp3 Marianne Clay al6
--- NOTE | 2024-11-21 17:37 | EDPHYS ---
Physician Documentation [facility] Name: Yayo Morgan Age: 24 yrs Sex: Female : 2000 Arrival Date: 11/21/2024 Time: 15:57 Bed IW1 Private MD: ED Physician Cynthia Foster HPI: 11/21 17:32 This 24 yrs old Female presents to ER via Ambulatory with complaints of sp3 Headache, Fainting. 17:32 24-year-old female with history of polycystic ovarian syndrome, diet controlled sp3 diabetes presents to the ED with chief complaint near syncope and 5 months of vaginal bleeding. Patient states that she has not regularly seen a physician. She was seen at [facility] approximately 1 month ago for high blood sugar and treated and released. She cannot recall what her hemoglobin was at that time but she was not told that she was anemic. She denies bleeding anywhere else, , abdominal pain, back pain, chest pain, shortness of breath, headache, or any other signs or symptoms on ROS at this time.. Historical: - Allergies: 16:05 Bees; ll1 16:18 Wasps; ll1 - PMHx: 16:05 Diabetes - NIDDM; PCOS; ll1 - PSHx: 16:05 Tonsillectomy; femur; ll1 - Immunization history:: Adult Immunizations up to date. - Social history:: Smoking status: Patient denies any tobacco usage or history of. ROS: 17:33 Eyes: Negative for injury, pain, redness, and discharge, ENT: Negative for injury, sp3 pain, and discharge, Neck: Negative for injury, pain, and swelling, Cardiovascular: Negative for chest pain, palpitations, and edema, Respiratory: Negative for shortness of breath, cough, wheezing, and pleuritic chest pain, Abdomen/GI: Negative for abdominal pain, nausea, vomiting, diarrhea, and constipation, Back: Negative for injury and pain, MS/Extremity: Negative for injury and deformity, Skin: Negative for injury, rash, and discoloration, Psych: Negative for depression, anxiety, suicide ideation, homicidal ideation, and hallucinations, Allergy/Immunology: Negative for hives, rash, and allergies, Endocrine: Negative for neck swelling, polydipsia, polyuria, polyphagia, and marked weight changes, Hematologic/Lymphatic: Negative for swollen nodes, abnormal bleeding, and unusual bruising, 17:33 All other systems are negative, Exam: 17:34 Constitutional: This is a well developed, well nourished patient who is awake, alert, sp3 and in no acute distress. Head/Face: Normocephalic, atraumatic. Eyes: Pupils equal round and reactive to light, extra-ocular motions intact. Lids and lashes normal. Conjunctiva and sclera are non-icteric and not injected. Cornea within normal limits. Periorbital areas with no swelling, redness, or edema. ENT: Nares patent. No nasal discharge, no septal abnormalities noted. External auditory canals are clear. Oropharynx with no redness, swelling, or masses, exudates, or evidence of obstruction, uvula midline. Mucous membranes moist. Neck: Trachea midline, no thyromegaly or masses palpated, and no cervical lymphadenopathy. Supple, full range of motion without nuchal rigidity, or vertebral point tenderness. No Meningismus. Chest/axilla: Normal chest wall appearance and motion. Nontender with no deformity. No lesions are appreciated. Cardiovascular: Regular rate and rhythm with a normal S1 and S2. No gallops, murmurs, or rubs. Normal PMI, no JVD. No pulse deficits. Respiratory: Lungs have equal breath sounds bilaterally, clear to auscultation and percussion. No rales, rhonchi or wheezes noted. No increased work of breathing, no retractions or nasal flaring. Abdomen/GI: Soft, non-tender, with normal bowel sounds. No distension or tympany. No guarding or rebound. No evidence of tenderness throughout. Back: No spinal tenderness. No costovertebral tenderness. Full range of motion. Skin: Warm, dry with normal turgor. Normal color with no rashes, no lesions, and no evidence of cellulitis. MS/ Extremity: Pulses equal, no cyanosis. Neurovascular intact. Full, normal range of motion. Neuro: Awake and alert, GCS 15, oriented to person, place, time, and situation. Cranial nerves II-XII grossly intact. Motor strength 5/5 in all extremities. Sensory grossly intact. Cerebellar exam normal. Normal gait. Psych: Awake, alert, with orientation to person, place and time. Behavior, mood, and affect are within normal limits. 17:34 Abdomen/GI: Pelvic exam deferred since interaction with the triage., Vital Signs: 16:18 BP 127 / 66; Pulse 94; Resp 18; Temp 98; Pulse Ox 100% ; Weight 117.93 kg; Height 5 ft. ll1 4 in. ; Pain 6/10; 16:18 Body Mass Index 44.63 (117.93 kg, 162.56 cm) ll1 16:18 Pain Scale: Adult ll1 MDM: 16:16 Medical Screening Exam initiated sp3 17:35 Data reviewed: vital signs, nurses notes. ED course: 24-year-old female with near sp3 syncope and vaginal bleeding. Vital signs are normal. Plan is to get old records from [facility] to find baseline hemoglobin as well as obtain new labs here. Differential diagnosis includes dysfunctional uterine bleeding versus anemia versus coagulopathy versus other Once room was available, patient was no longer in the lobby. We are assuming that she eloped.. 11/21 16:38 Order name: IV Saline Lock sp3 11/21 16:38 Order name: Labs collected and sent sp3 11/21 16:38 Order name: Orthostatic Blood Pressure sp3 Administered Medications: 17:42 Not Given (pt left prior to care complete): ns 0.9% 1000 ml IV at 1 bolus Per protocol; ss to be given as a bolus over 60 minutes Disposition Summary: 11/21/24 17:37 Eloped Notes: Disposition: after being seen by provider sp3 Reason: unknown sp3 Diagnosis - Vaginal bleeding, near syncope, workup incomplete sp3 Followup: sp3 - With: Emergency Department - When: Immediately - Reason: Signatures: Dispatcher [employer] EDMildred Hewitt RN RN ll1 Cynthia Foster MD MD sp3 Poornima San RN ss
[2024-11-22 03:07] VITALS: BP 127/66; TEMP 98; O2SAT 100
== END 2024-11-21 17:43 | disposition left against medical advice (07) ==
LOC: ER 15:57
DX: Z53.21 Procedure and treatment not carried out due to patient leaving prior to being seen by health care provider (principal)
CPT/HCPCS: 99281

== ENCOUNTER 2025-02-15 17:03 | Emergency (ER) | payer OTHER ==
[2025-02-15] MEDS ORDERED: NA CHLORIDE 0.9% 1,000 ML ONE (17:20)
[2025-02-15] MEDS ORDERED: LEVETIRACETAM 500 MG/5 ML VIAL IV ONE (17:34)
[2025-02-15] MEDS ORDERED: NA CHLORIDE 0.9% 100 ML ONE (17:34)
[2025-02-15 17:43] LABS: Anion Gap 11.4 mEq/L (5.0-15.0); Potassium 3.4 mEq/L (3.5-5.1); Troponin High Sensitivity 3.9 pg/mL (<58.9)
[2025-02-15 17:47] LABS: Absolute Basophils 0.1 K/uL (0-0.5); Absolute Eosinophils 0.1 K/uL (0-0.5); Absolute Lymphocytes (CBC) 3.2 K/uL (0.7-4.9); Absolute Monocytes 0.7 K/uL (0.1-1.3); Absolute Neutrophil 10.8 K/uL (1.8-8.0); Basophils % 0.9 % (0-1.3); Hematocrit 31.3 % (36.0-45.0); Hemoglobin 9.6 g/dL (12.0-15.0); Lymphocytes % 21.4 % (15.3-44.8); MCH 18.8 pg (27.0-35.0); MCHC 30.5 g/dL (32.0-36.0); MCV 61.5 fL (80-100); MPV 7.9 fL (7.6-11.3); Monocytes % 4.4 % (3.3-12.3); Neutrophils % 72.3 % (41.7-73.7); Platelets 458 thou/uL (152-406); Red Cell Distribution Width 19.2 % (12.1-15.2)
[2025-02-15 17:52] LABS: ALT/SGPT 46 U/L (13-56); AST/SGOT 22 U/L (15-37); Albumin 3.3 g/dL (3.4-5.0); Albumin/Globulin Ratio 0.8 (1.1-1.8); Alkaline Phosphatase 88 U/L (45-117); Bilirubin Total 0.5 mg/dL (0.2-1.0); Creatine Phosphokinase 55 U/L (26-192); Globulin 4.3 g/dL (2.3-3.5); Magnesium 1.7 mg/dL (1.6-2.4); Protein, Total 7.6 g/dL (6.4-8.2)
[2025-02-15 17:53] LABS: Bilirubin Direct < 0.2 mg/dL (0-0.2); Bilirubin Indirect, Calculated 0.3 mg/dL (0.2-0.8)
--- NOTE | 2025-02-15 18:01 | RAD REPORT ---
EXAM: CT brain without contrast HISTORY: Seizure COMPARISON: 2020 TECHNIQUE: Multiple contiguous axial images were obtained and a CT of the brain without contrast.. Sagittal and coronal reconstruction performed. Automated exposure control, adjustment of the mA and/or kV according to patient size, and/or iterative reconstruction. Unless otherwise specified, incidental f indings do not require dedicated imaging follow-up FINDINGS: An intracranial bleed is not seen Ventricles are normal caliber No extra-axial fluid collection noted No significant hypodensity within the brain No fluid within the visualized sinuses or mastoids noted. IMPRESSION: No acute intracranial abnormality noted. If the patient continues to have symptoms to suggest an acute intracranial abnormality then MRI of th e brain would be recommended.
[2025-02-15 18:23] LABS: Blood Morphology Comment NOTED (NOT SEEN); Platelet Estimate INCR; White Blood Cell Scan OK (OK)
[2025-02-15 18:24] LABS: Anisocytosis 1+; Hypochromasia 1+; Microcytosis 1+; Polychromasia 1+
--- NOTE | 2025-02-15 18:42 | RAD REPORT ---
Procedure: Chest Single View HISTORY: Seizure COMPARISON: 2020 FINDINGS: The lungs appear clear of acute infiltrate. No significant pleural effusion noted. The heart is normal size. IMPRESSION: No acute abnormality is displayed.
[2025-02-15] MEDS ORDERED: ONDANSETRON 4 MG/2 ML VIAL ONE (18:47)
--- NOTE | 2025-02-15 19:49 | EDPHYS ---
Physician Documentation [facility] Name: Yayo Morgan Age: 24 yrs Sex: Female : 2000 Arrival Date: 02/15/2025 Time: 17:03 Bed 4 Private MD: ED Physician Bernard Mcdowell HPI: 02/15 19:09 This 24 yrs old Female presents to ER via Carried with complaints of rt Unresponsive. 19:09 Patient presents to the ED with an acute episode of unresponsiveness, possible rt seizure-like activity. About a week ago, patient was started on fluoxetine, Risperdal, BuSpar by [facility], no further history could be obtained for patient due to altered mental status. Symptoms are severe in severity, no other aggravating or alleviating factors.. Historical: - Allergies: 17:14 Bees; hb 17:14 Wasps; hb - Home Meds: 17:14 buspirone 10 mg oral tablet 2 times per day [Active]; fluoxetine 20 mg Oral capsule 2 hb times per day [Active]; Risperdal 1 mg Oral tablet daily [Active]; - PMHx: 17:14 Diabetes - NIDDM; PCOS; hb - PSHx: 17:14 femur; Tonsillectomy; hb - Immunization history:: Adult Immunizations up to date. - Infectious Disease History:: Denies. - Social history:: Smoking status: Patient denies any tobacco usage or history of. - Family history:: not pertinent. ROS: 19:09 Unable to obtain ROS due to altered mental status, rt Exam: 19:09 Head/Face: Normocephalic, atraumatic. Chest/axilla: Normal chest wall appearance and rt motion. Nontender with no deformity. No lesions are appreciated. Cardiovascular: Regular rate and rhythm with a normal S1 and S2. No gallops, murmurs, or rubs. Normal PMI, no JVD. No pulse deficits. Respiratory: Lungs have equal breath sounds bilaterally, clear to auscultation and percussion. No rales, rhonchi or wheezes noted. No increased work of breathing, no retractions or nasal flaring. Abdomen/GI: Soft, non-tender, with normal bowel sounds. No distension or tympany. No guarding or rebound. No evidence of tenderness throughout. Skin: Warm, dry with normal turgor. Normal color with no rashes, no lesions, and no evidence of cellulitis. 19:09 ECG was reviewed by the Attending Physician. 19:09 Neuro: Appears to be actively seizing, no lateralizing deficits, Vital Signs: 17:13 BP 139 / 76; Pulse 131; Resp 14; Pulse Ox 100% on R/A; hb 17:25 BP 139 / 90; Pulse 112; Resp 15; Pulse Ox 99% ; jl7 18:52 BP 125 / 76; Pulse 91; Resp 18 S; Pulse Ox 94% on R/A; kc6 19:10 BP 125 / 82; Pulse 96; Resp 17; Pulse Ox 100% on R/A; jj7 20:10 BP 129 / 71; Pulse 93; Resp 16; Temp 97.9; Pulse Ox 100% ; jj7 MDM: 17:06 Medical Screening Exam initiated rt 20:33 Differential Diagnosis Seizure, intracranial hemorrhage, dysrhythmia. Data reviewed: rt vital signs, nurses notes, lab test result(s), EKG, radiologic studies. Consideration of Admission/Observation Escalation of care including admission/observation considered. Heart rate improving with IV fluids, patient had return to baseline neurologic status, is no longer postictal, as this is the first episode of a seizure, likely precipitated by psych medications, do not believe that starting antiepileptics are indicated at this time, patient instructed to follow-up with neurology as an outpatient, patient was instructed to avoid driving or any other hazardous activity until she is cleared by neurologist.. I considered the following discharge prescriptions or medication management in the emergency department Medications were administered in the Emergency Department. See MAR. Independent interpretation of the following test(s) in the Emergency Department CT Scan: My interpretation is No intracranial hemorrhage seen on monitor potation of CT scan images. Care significantly affected by the following chronic conditions: Diabetes. Counseling: I had a detailed discussion with the patient and/or guardian regarding the historical points, exam findings, and any diagnostic results supporting the discharge/admit diagnosis, lab results, radiology results, the need for outpatient follow up, to return to the emergency department if symptoms worsen or persist or if there are any questions or concerns that arise at home. Response to treatment: the patient's symptoms have markedly improved after treatment. 02/15 17:14 Order name: Basic Metabolic Panel; Complete Time: 18:08 aa5 02/15 17:14 Order name: CBC with Diff; Complete Time: 18:57 5 02/15 17:14 Order name: Troponin HS; Complete Time: 18:08 aa5 02/15 17:21 Order name: LFT's; Complete Time: 18:08 rt 02/15 17:22 Order name: Test, Serum; Complete Time: 18:08 rt 02/15 17:22 Order name: Magnesium; Complete Time: 18:08 rt 02/15 17:22 Order name: CPK; Complete Time: 18:08 rt 02/15 17:23 Order name: Glucose, Ancillary Testing; Complete Time: 18:08 EDMS 02/15 18:24 Order name: CBC Smear Scan; Complete Time: 18:57 EDMS 02/15 17:14 Order name: XRAY Chest (1 view); Complete Time: 18:57 aa5 02/15 17:22 Order name: CT Head Brain wo Cont; Complete Time: 18:08 rt 02/15 17:14 Order name: EKG; Complete Time: 17:15 02/15 17:14 Order name: Cardiac monitoring; Complete Time: 17:15 02/15 17:14 Order name: EKG - Nurse/Tech; Complete Time: 17:15 02/15 17:14 Order name: IV Saline Lock; Complete Time: 17:15 02/15 17:14 Order name: Labs collected and sent; Complete Time: 17:14 02/15 17:14 Order name: O2 Per Protocol; Complete Time: 17:14 02/15 17:14 Order name: O2 Sat Monitoring; Complete Time: 17:14 02/15 17:22 Order name: Accucheck; Complete Time: 17:45 rt EC:09 Rate is 124 beats/min. Rhythm is regular, Sinus tachycardia with No ectopy. QRS Tynan is rt Normal. TN interval is normal. QRS interval is normal. QT interval is normal. No Q waves. T waves are Normal. Administered Medications: 17:10 Drug: Ativan IVP 2 mg IVP once Route: IVP; Site: left antecubital; hb 19:00 Follow up: Response: Marked relief of symptoms jj7 17:25 Drug: NS 0.9% IV 1000 ml IV at 1 bolus Per protocol; to be given as a bolus over 60 jl7 minutes Route: IV; Rate: 1 bolus; Site: left antecubital; 19:00 Follow up: IV Status: Completed infusion jj7 17:39 Drug: Keppra IV 2000 mg IV at calculated rate once Route: IV; Rate: calculated rate; jl7 Site: left antecubital; 19:00 Follow up: IV Status: Completed infusion jj7 18:51 Drug: Ondansetron IVP 4 mg IVP once; over 2 minutes Route: IVP; Site: left forearm; kc6 20:19 Follow up: Response: Marked relief of symptoms jj7 Disposition Summary: 02/15/25 19:48 Discharge Ordered Notes: Location: Home rt Problem: new rt Symptoms: have improved rt Condition: Stable rt Diagnosis - Other seizures rt Followup: rt - With: Arley Coleman MD - When: 2 - 3 days - Reason: Discharge Instructions: - Discharge Summary Sheet rt - Seizure, Adult rt Forms: - Medication Reconciliation Form rt - Antibiotic Education rt - Prescription Opioid Use rt - Patient Portal Instructions rt - Leadership Thank You Letter rt Signatures: Dispatcher [employer] Amna Ontievros RN RN aa5 Kimi Varma RN RN Jessica Brown RN RN jl7 Emma Chen RN RN kc6 Bernard Mcdowell MD MD rt Nilton Tariq RN jj7
--- NOTE | 2025-02-15 19:49 | ER ---
Nurse's Notes [facility] Name: Yayo Morgan Age: 24 yrs Sex: Female : 2000 Arrival Date: 02/15/2025 Time: 17:03 Bed 4 Private MD: Diagnosis: Other seizures Presentation: 02/15 17:13 Chief complaint: Became unresponsive while riding in vehicle, possible seizure activity hb noted by family. Recently started risperidone, buspar, and fluoxetine, did not have morning dose. Coronavirus screen: At this time, the client does not indicate any symptoms associated with coronavirus-19. Ebola Screen: No symptoms or risks identified at this time. Initial Sepsis Screen: Does the patient meet any 2 criteria? No. Patient's initial sepsis screen is negative. Does the patient have a suspected source of infection? No. Patient's initial sepsis screen is negative. Risk Assessment: Do you want to hurt yourself or someone else? Patient reports no desire to harm self or others. Onset of symptoms was February 15, 2025. 17:13 Method Of Arrival: Carried 17:13 Acuity: ANAHY 1 hb Triage Assessment: 17:05 General: Appears distressed, uncomfortable, Behavior is unresponsive. pt sitting in jl7 wheelchair, eyes appear to be fluttering, body appears to be and feels stiff, lasting approximately 30 seconds. Pt appears to jerk and eyes opened and pt was able to stand, pivot and sit on the stretcher.. Pain: Unable to use pain scale. Patient is unresponsive. Neuro: Benavidez Agitation-Sedation Scale (RASS): -1 Drowsy Level of Consciousness is awake, post ictal. Cardiovascular: Patient's skin is warm and dry. Respiratory: Airway is patent Respiratory effort is even, unlabored, Respiratory pattern is regular, symmetrical. Derm: Skin is pink, warm \T\ dry. Historical: - Allergies: 17:14 Bees; hb 17:14 Wasps; hb - Home Meds: 17:14 buspirone 10 mg oral tablet 2 times per day [Active]; fluoxetine 20 mg Oral capsule 2 hb times per day [Active]; Risperdal 1 mg Oral tablet daily [Active]; - PMHx: 17:14 Diabetes - NIDDM; PCOS; hb - PSHx: 17:14 femur; Tonsillectomy; hb - Immunization history:: Adult Immunizations up to date. - Infectious Disease History:: Denies. - Social history:: Smoking status: Patient denies any tobacco usage or history of. - Family history:: not pertinent. Screenin:45 [facility] ED Fall Risk Assessment (Adult) History of falling in the last 3 months, jl7 including since admission No falls in past 3 months (0 pts) Confusion or Disorientation Yes (5 pts) Intoxicated or Sedated No (0 pts) Impaired Gait Yes (1 pt) Mobility Assist Device Used No (0 pt) Altered Elimination No (0 pt) Score/Fall Risk Level 3 or more points = High Risk Maintained a safe environment, Utilized family, sitter, or virtual show horse driver as indicated. Abuse screen: Denies threats or abuse. Denies injuries from another. Nutritional screening: No deficits noted. Tuberculosis screening: No symptoms or risk factors identified. Assessment: 17:25 Reassessment: Patient appears in no apparent distress at this time. pt laying in bed, jl7 crying asking for Dad, pts boyfriend reports her Dad dies 2 years ago ERD notified. 17:45 Reassessment: Patient appears in no apparent distress at this time. pt initially unable jl7 to answer orientation questions but is now able to provide answers, oriented x 3 at this time. 18:51 General: Behavior is drowsy. Neuro: Level of Consciousness is confused. GI: dry heaving.kc6 19:10 Reassessment: ASSUMED CARE OF PT. PT SITTING IN BED DRINKING WATER. PT IS ALERT. jj7 SHAKING HER HEAD TO ANSWER QUESTIONS APPROPRIATELY. VS STABLE. FAMILY AT BEDSIDE. CALL LARKIN IN REACH. General: Appears in no apparent distress. comfortable, Behavior is calm, cooperative, appropriate for age, quiet. Neuro: Level of Consciousness is awake, alert, obeys commands, Seizure activity PT STATES SHE HAD SZ WHEN SHE WAS A LITTLE GIRL. Vital Signs: 17:13 BP 139 / 76; Pulse 131; Resp 14; Pulse Ox 100% on R/A; hb 17:25 BP 139 / 90; Pulse 112; Resp 15; Pulse Ox 99% ; jl7 18:52 BP 125 / 76; Pulse 91; Resp 18 S; Pulse Ox 94% on R/A; kc6 19:10 BP 125 / 82; Pulse 96; Resp 17; Pulse Ox 100% on R/A; jj7 20:10 BP 129 / 71; Pulse 93; Resp 16; Temp 97.9; Pulse Ox 100% ; jj7 ED Course: 17:04 Patient arrived in ED. im 17:04 Bernard Mcdowell MD is Attending Physician. rt 17:06 Jessica Brown, AMADO is Primary Nurse. jl7 17:14 Triage completed. hb 17:15 Initial lab(s) drawn, by me, sent to lab. Inserted saline lock: 20 gauge in left em1 antecubital area, using aseptic technique. Blood collected. Flushed with 10 mL NS. 17:16 Arm band placed on. hb 17:27 EKG done, by ED staff, reviewed by Bernard Mcdowell MD. em1 17:45 Provided Education on: use of call larkin. jl7 17:51 CT Head Brain wo Cont In Process Unspecified. EDMS 18:40 XRAY Chest (1 view) In Process Unspecified. EDMS 18:52 Patient maintains SpO2 saturation greater than 95% on room air. kc6 18:52 Patient has correct armband on for positive identification. Bed in low position. Call kc6 light in reach. Side rails up X2. Adult w/ patient. Seizure precautions initiated. event host on. Pulse ox on. NIBP on. Door closed. Noise minimized. Lights dimmed. Warm blanket given. Pillow given. Verbal reassurance given. 19:10 No provider procedures requiring assistance completed. jj7 19:10 Diet: Patient given juice. jj7 19:48 Arley Coleman MD is Referral Physician. rt 20:10 IV discontinued, intact, bleeding controlled, No redness/swelling at site. Pressure jj7 dressing applied. Administered Medications: 17:10 Drug: Ativan IVP 2 mg IVP once Route: IVP; Site: left antecubital; hb 19:00 Follow up: Response: Marked relief of symptoms jj7 17:25 Drug: NS 0.9% IV 1000 ml IV at 1 bolus Per protocol; to be given as a bolus over 60 jl7 minutes Route: IV; Rate: 1 bolus; Site: left antecubital; 19:00 Follow up: IV Status: Completed infusion jj7 17:39 Drug: Keppra IV 2000 mg IV at calculated rate once Route: IV; Rate: calculated rate; jl7 Site: left antecubital; 19:00 Follow up: IV Status: Completed infusion j 18:51 Drug: Ondansetron IVP 4 mg IVP once; over 2 minutes Route: IVP; Site: left forearm; kc6 20:19 Follow up: Response: Marked relief of symptoms j Medication: 17:45 VIS not applicable for this client. jl7 Outcome: 19:48 Discharge ordered by . rt 20:10 Discharged to home ambulatory, via wheelchair, with family, jj7 20:10 Condition: improved 20:10 Discharge instructions given to patient, significant other, Instructed on discharge instructions, follow up and referral plans. Demonstrated understanding of instructions, follow-up care, 20:22 Patient left the ED. jj7 Signatures: Dispatcher [employer] Justino Shine em1 Kimi Varma, RN RN Jessica Aponte RN RN jl7 Emma Chen RN RN kc6 Nilton Tariq RN RN jj7 Bernard Mcdowell MD MD rt Juliette Castro
[2025-02-15 21:47] VITALS: O2SAT 100
[2025-02-15 21:48] VITALS: BP 129/71; TEMP 97.9
== END 2025-02-15 20:22 | disposition home or self-care (01) ==
LOC: ER 17:03
DX: G40.89 Other seizures (principal)
CPT/HCPCS: 85025; 80048; 36415; 83735; 82550; 84703; 82947; 80076; 84484; 70450; 71045; 99285; J1953; J2405; J7030; 93005

== ENCOUNTER 2025-02-16 14:57 | Emergency (ER) | payer OTHER ==
[2025-02-16] MEDS ORDERED: LEVETIRACETAM 500 MG/5 ML VIAL IV ONE (15:52)
[2025-02-16] MEDS ORDERED: LORazepam 2 MG/ML VIAL ONE (15:52)
[2025-02-16] MEDS ORDERED: NA CHLORIDE 0.9% 1,000 ML ONE (15:53)
[2025-02-16] MEDS ORDERED: NA CHLORIDE 0.9% 100 ML ONE (15:53)
[2025-02-16 16:34] LABS: Anion Gap 7.7 mEq/L (5.0-15.0); Potassium 3.7 mEq/L (3.5-5.1)
[2025-02-16 16:44] LABS: Absolute Basophils 0.1 K/uL (0-0.5); Absolute Eosinophils 0.1 K/uL (0-0.5); Absolute Lymphocytes (CBC) 1.4 K/uL (0.7-4.9); Absolute Monocytes 0.6 K/uL (0.1-1.3); Absolute Neutrophil 8.1 K/uL (1.8-8.0); Basophils % 0.9 % (0-1.3); Eosinophils % 0.8 % (0-4.4); Hematocrit 27.2 % (36.0-45.0); Hemoglobin 8.6 g/dL (12.0-15.0); Lymphocytes % 13.4 % (15.3-44.8); MCH 19.3 pg (27.0-35.0); MCHC 31.8 g/dL (32.0-36.0); MCV 60.8 fL (80-100); MPV 8.3 fL (7.6-11.3); Monocytes % 5.8 % (3.3-12.3); Neutrophils % 79.1 % (41.7-73.7); Nucleated Red Blood Cells % 0.1 % (0-0); Platelets 351 thou/uL (152-406); RBC Red Blood Cell Count 4.47 M/uL (3.86-4.86); Red Cell Distribution Width 19.2 % (12.1-15.2)
[2025-02-16 17:34] LABS: Anisocytosis 1+; Blood Morphology Comment NOTED (NOT SEEN); Hypochromasia 1+; Microcytosis 1+; Ovalocytes SLIGHT; Platelet Estimate ADEQ; Poikilocytosis SLIGHT; Polychromasia 1+; White Blood Cell Scan OK (OK)
--- NOTE | 2025-02-16 17:52 | ER ---
Nurse's Notes [facility] Name: Yayo Morgan Age: 24 yrs Sex: Female : 2000 Arrival Date: 02/16/2025 Time: 14:57 Bed 2 Private MD: Diagnosis: Other seizures Presentation: 02/16 15:01 Chief complaint: EMS states: Pt was found unresponsive, eyes rolled back, and body aa5 tense upon scene arrival, Ativan 2mg IM was administered and pt had another seizure like activity, Versed 5mg IVP was given then. Pt currently not speaking, pt following some commands upon ER arrival. EMS reports pt was seen in ER yesterday. 15:01 Coronavirus screen: At this time, the client does not indicate any symptoms associated aa5 with coronavirus-19. Ebola Screen: No symptoms or risks identified at this time. Initial Sepsis Screen: Does the patient meet any 2 criteria? No. Patient's initial sepsis screen is negative. Does the patient have a suspected source of infection? No. Patient's initial sepsis screen is negative. Risk Assessment: Do you want to hurt yourself or someone else? Unable to obtain. Onset of symptoms was February 15, 2025. 15:01 Acuity: ANAHY 2 aa5 15:01 Method Of Arrival: EMS: [facility] aa5 Triage Assessment: 15:06 General: Appears distressed, obese, Behavior is anxious. Pain: Denies pain. EENT: No bp deficits noted. Neuro: Level of Consciousness is awake, Oriented to none. Cardiovascular: Rhythm is sinus tachycardia. Respiratory: No deficits noted. GI: No signs and/or symptoms were reported involving the gastrointestinal system. : No signs and/or symptoms were reported regarding the genitourinary system. Derm: No deficits noted. Musculoskeletal: No deficits noted. Historical: - Allergies: 15:06 Bees; aa5 15:06 Wasps; aa5 - Home Meds: 15:06 buspirone 10 mg Oral tablet 2 times per day [Active]; fluoxetine 20 mg Oral capsule 2 aa5 times per day [Active]; Risperdal 1 mg Oral tablet daily [Active]; - PMHx: 15:06 Diabetes - NIDDM; PCOS; aa5 - PSHx: 15:06 femur; Tonsillectomy; aa5 - Immunization history:: Adult Immunizations up to date. - Infectious Disease History:: Denies. - Family history:: not pertinent. - Social history:: Smoking status: Patient denies any tobacco usage or history of. - Hospitalizations: : No recent hospitalization is reported. Screenin:00 [facility] ED Fall Risk Assessment (Adult) History of falling in the last 3 months, bp including since admission No falls in past 3 months (0 pts) Confusion or Disorientation No (0 pts) Intoxicated or Sedated Yes (3 pts) Impaired Gait No (0 pts) Mobility Assist Device Used No (0 pt) Altered Elimination No (0 pt) Score/Fall Risk Level 3 or more points = High Risk Oriented to surroundings, Maintained a safe environment. Abuse screen: Denies threats or abuse. Denies injuries from another. Nutritional screening: No deficits noted. Tuberculosis screening: No symptoms or risk factors identified. Assessment: 15:06 General: Appears in no apparent distress. Behavior is agitated, anxious. bp 16:00 Reassessment: FAMILY REPORT PT HAVING ANOTHER SZ. PT ROLLING EYES AND NOT SPEAKING, BUT bp RESPONDING TO NOXIOUS STIMULI AND REFLEXES INTACT. Vital Signs: 15:01 BP 120 / 88; Pulse 90; Resp 18 S; Temp 98.2(A); Pulse Ox 100% on 2 lpm NC; aa5 16:07 BP 114 / 61; Pulse 76; Resp 16 S; Pulse Ox 99% on R/A; kc6 17:17 BP 100 / 52; Pulse 83; Resp 16 S; Pulse Ox 100% on R/A; kc6 18:18 BP 102 / 77; Pulse 81; Resp 11; Pulse Ox 99% ; bp Obed Coma Score: 15:06 Eye Response: spontaneous(4). Motor Response: localizes pain(5). Verbal Response: bp confused(4). Total: 13. ED Course: 15:01 Patient arrived in ED. eb 15:01 Arm band placed on Patient placed in an exam room, on a stretcher. aa5 15:02 Marcus Bartholomew MD is Attending Physician. rn 15:06 Seizure precautions initiated. bp 15:10 Triage completed. aa5 15:10 Maintain EMS IV. Dressing intact. Good blood return noted. Site clean \T\ dry. Gauge \T\ bp site: 20 RAC. Flushed with 10 mL NS. 15:10 Initial lab(s) drawn, by me, sent to lab. EKG done, by ED staff, reviewed by Marcus Bartholomew MD. 15:17 Mitchell Alvarado, RN is Primary Nurse. bp 16:00 Patient has correct armband on for positive identification. bp 17:51 Arley Coleman MD is Referral Physician. rn 18:18 No provider procedures requiring assistance completed. IV discontinued, intact, bp bleeding controlled, No redness/swelling at site. Pressure dressing applied. 02/17 07:06 medications sent to security. bd Administered Medications: 02/16 16:03 Drug: Ativan IVP 1 mg IVP once Route: IVP; Site: right antecubital; bp 18:19 Follow up: Response: No adverse reaction bp 16:03 Drug: Keppra IV 1000 mg IV at calculated rate once Route: IV; Rate: calculated rate; bp Site: right antecubital; 18:19 Follow up: IV Status: Completed infusion bp 16:04 Drug: NS 0.9% IV 1000 ml IV at 1000 ml once; to be given as a bolus over 60 minutes bp Route: IV; Rate: 1000 ml; Site: right antecubital; 18:19 Follow up: IV Status: Completed infusion bp Medication: 16:00 VIS not applicable for this client. bp Outcome: 17:51 Discharge ordered by . rn 18:18 Discharged to home ambulatory, with family, bp 18:18 Condition: stable 18:18 Discharge instructions given to patient, family, Instructed on discharge instructions, follow up and referral plans. medication usage, Demonstrated understanding of instructions, follow-up care, medications, Prescriptions given X 1, 18:19 Patient left the ED. bp Signatures: Anila Vann Roman, MD MD rn Calderon, Audri, RN RN aa5 Mitchell Alvarado, RN RN bp Mia Miller Kaitlyn RN RN kc6
--- NOTE | 2025-02-16 17:52 | EDPHYS ---
Physician Documentation [facility] Name: Yayo Morgan Age: 24 yrs Sex: Female : 2000 Arrival Date: 02/16/2025 Time: 14:57 Bed 2 Private MD: ED Physician Marcus Bartholomew HPI: 02/16 17:07 This 24 yrs old Female presents to ER via EMS with complaints of Seizure. rn 17:07 The patient presents after having a possible seizure episode. Seizure onset: today. rn Associated injury: The patient did not suffer any apparent associated injury. Current symptoms: confusion. Patient seen here for seizure or possible seizure yesterday. Patient has never had a seizure. Patient recently started on buspirone. Told to stop medication and she did. Patient has episodes where she has blank stare followed by confusion. Blank stare last for few seconds and returns back to normal after a period of confusion. No shaking activity. No recent head injury. No fever or chills. No recent illness. No drug use. Is not . Significant other reports under a lot of stress lately and that is why she saw her psychiatrist who restarted her on medications recently. Patient has only had a few doses. Seen here yesterday with negative workup and told to follow-up with neurology for possible new onset seizures.. Historical: - Allergies: 15:06 Bees; aa5 15:06 Wasps; aa5 - Home Meds: 15:06 buspirone 10 mg Oral tablet 2 times per day [Active]; fluoxetine 20 mg Oral capsule 2 aa5 times per day [Active]; Risperdal 1 mg Oral tablet daily [Active]; - PMHx: 15:06 Diabetes - NIDDM; PCOS; aa5 - PSHx: 15:06 femur; Tonsillectomy; aa5 - Immunization history:: Adult Immunizations up to date. - Infectious Disease History:: Denies. - Family history:: not pertinent. - Social history:: Smoking status: Patient denies any tobacco usage or history of. - Hospitalizations: : No recent hospitalization is reported. ROS: 17:07 Constitutional: Negative for fever, chills, and weight loss, Eyes: Negative for injury, rn pain, redness, and discharge, Cardiovascular: Negative for chest pain, palpitations, and edema, Respiratory: Negative for shortness of breath, cough, wheezing, and pleuritic chest pain, Abdomen/GI: Negative for abdominal pain, nausea, vomiting, diarrhea, and constipation, MS/Extremity: Negative for injury and deformity, Skin: Negative for injury, rash, and discoloration, Neuro: Negative for headache, weakness, numbness, tingling Exam: 17:07 Constitutional: This is a well developed, well nourished patient who is awake, alert, rn and in no acute distress. Head/Face: Normocephalic, atraumatic. Cardiovascular: Regular rate and rhythm. No pulse deficits. Respiratory: No increased work of breathing, no retractions or nasal flaring. Abdomen/GI: Soft, non-tender MS/ Extremity: Pulses equal, no cyanosis. Neuro: Awake, seems distraught and tearful. Moving all 4 extremities. Brief episode of blank stare noted but immediately with jaw thrust and sternal rub patient woke up and cried asking for her mom. 17:18 ECG was reviewed by the Attending Physician. rn Vital Signs: 15:01 BP 120 / 88; Pulse 90; Resp 18 S; Temp 98.2(A); Pulse Ox 100% on 2 lpm NC; aa5 16:07 BP 114 / 61; Pulse 76; Resp 16 S; Pulse Ox 99% on R/A; kc6 17:17 BP 100 / 52; Pulse 83; Resp 16 S; Pulse Ox 100% on R/A; kc6 18:18 BP 102 / 77; Pulse 81; Resp 11; Pulse Ox 99% ; bp Obed Coma Score: 15:06 Eye Response: spontaneous(4). Motor Response: localizes pain(5). Verbal Response: bp confused(4). Total: 13. MDM: 15:02 Medical Screening Exam initiated rn 17:50 Differential diagnosis: seizure, Acute stress reaction. Data reviewed: vital signs, rn nurses notes, old medical records, lab test result(s), EKG, radiologic studies, and as a result, I will discharge patient. Management of patient was discussed with the following: Plate Gauger: Management discussed with Dr. Coleman, neurology, agrees with initiation of Keppra and consider outpatient follow-up.. Counseling: I had a detailed discussion with the patient and/or guardian regarding the historical points, exam findings, and any diagnostic results supporting the discharge/admit diagnosis, lab results, the need for outpatient follow up, to return to the emergency department if symptoms worsen or persist or if there are any questions or concerns that arise at home. Response to treatment: the patient's symptoms have markedly improved after treatment, the patient's condition has returned to base line, and as a result, I will discharge patient. Special discussion: I discussed with the patient/guardian in detail that at this point there is no indication for admission to the hospital. It is understood, however, that if the symptoms persist or worsen the patient needs to return immediately for re-evaluation. Based on the history and exam findings, there is no indication for further emergent testing or inpatient evaluation. I discussed with the patient/guardian the need to see the neurologist for further evaluation of the symptoms. 02/16 15:49 Order name: CBC with Diff; Complete Time: 17:43 rn 02/16 15:49 Order name: Basic Metabolic Panel; Complete Time: 16:35 rn 02/16 15:49 Order name: CK; Complete Time: 16:35 rn 02/16 15:49 Order name: Lactate w/ 2H reflex if indic.; Complete Time: 16:35 rn 02/16 17:34 Order name: CBC Smear Scan; Complete Time: 17:43 EDMS 02/16 15:49 Order name: EKG; Complete Time: 15:49 rn 02/16 15:49 Order name: IV Start; Complete Time: 15:50 rn 02/16 15:49 Order name: EKG - Nurse/Tech; Complete Time: 16:04 rn 02/16 15:49 Order name: Cardiac monitoring; Complete Time: 15:50 rn EC:18 Rate is 80 beats/min. Rhythm is regular. QRS Tucker is Normal. NH interval is normal. QRS rn interval is normal. QT interval is normal. No Q waves. T waves are Normal. No ST changes noted. Clinical impression: Normal ECG. Interpreted by me. Reviewed by me. Administered Medications: 16:03 Drug: Ativan IVP 1 mg IVP once Route: IVP; Site: right antecubital; bp 18:19 Follow up: Response: No adverse reaction bp 16:03 Drug: Keppra IV 1000 mg IV at calculated rate once Route: IV; Rate: calculated rate; bp Site: right antecubital; 18:19 Follow up: IV Status: Completed infusion bp 16:04 Drug: NS 0.9% IV 1000 ml IV at 1000 ml once; to be given as a bolus over 60 minutes bp Route: IV; Rate: 1000 ml; Site: right antecubital; 18:19 Follow up: IV Status: Completed infusion bp Disposition Summary: 02/16/25 17:51 Discharge Ordered Notes: Location: Home rn Problem: new rn Symptoms: have improved rn Condition: Stable rn Diagnosis - Other seizures rn Followup: rn - With: Private Physician - When: As needed - Reason: Recheck today's complaints, Re-evaluation by your physician Followup: rn - With: Arley Coleman MD - When: 2 - 3 days - Reason: Further diagnostic work-up, Recheck today's complaints, Re-evaluation by your physician Discharge Instructions: - Discharge Summary Sheet rn - Seizure, Adult rn Forms: - Medication Reconciliation Form rn - Antibiotic oil burner technician - Prescription Opioid Use rn - Patient Portal Instructions rn - Leadership Thank You Letter rn Prescriptions: - Keppra 500 mg Oral tablet - take 1 tablet ORAL route every 12 hours; 60 tablet; Refills: 0, Product rn Selection Permitted Signatures: Dispatcher [employer] EDMS Marcus Bartholomew MD MD rn Calderon, Audri RN RN aa5 Mitchell Alvarado RN RN bp Corrections: (The following items were deleted from the chart) 15:49 15:49 CBC+H.LAB.BRZ ordered. EDMS EDMS 15:49 15:49 BASIC METABOLIC PANEL+C.LAB.BRZ ordered. EDMS EDMS 15:49 15:49 CREATINE PHOSPHOKINASE+C.LAB.BRZ ordered. EDMS EDMS 15:49 15:49 LACTATE+C.LAB.BRZ ordered. EDMS EDMS
[2025-02-16 18:51] VITALS: TEMP 98.2
[2025-02-16 18:54] VITALS: BP 102/77; O2SAT 99
--- NOTE | 2025-02-17 10:48 | EKG ---
Test Date: 2025-02-16 Test Time: 15:57:46 Wordpress Developer: YAKELIN MEASUREMENT RESULTS: Intervals: Rate: 80 AR: 144 QRSD: 90 QT: 370 QTc: 426 [place]: P: 37 AR: 144 QRS: 40 T: 34 INTERPRETIVE STATEMENTS: Normal sinus rhythm Normal ECG Compared to ECG 06/08/2021 20:11:01 No significant changes Electronically Signed On 02-17-25 10:47:14 CDT by Shorty Lo
== END 2025-02-16 18:19 | disposition home or self-care (01) ==
LOC: ER 14:57
DX: R56.9 Unspecified convulsions (principal); E11.9 Type 2 diabetes mellitus without complications
CPT/HCPCS: 96365; 93005; 85025; 80048; 36415; 82550; 83605; 96375; 99284; 96366; J1953; J7030